=== PATIENT | male | born 1985 | race Caucasian/White ===

== ENCOUNTER 2022-10-11 11:44 | Emergency (ER) | payer MEDICARE, MEDICAID, SELFPAY ==
--- NOTE | ~2022-10-11 | XR_ITS ---
EXAMINATION: XR KNEE, RIGHT CLINICAL INFORMATION: Pain COMPARISON: February 12, 2011 TECHNIQUE: Four views of the right knee. FINDINGS: There is no evidence of acute fracture or dislocation of the right knee. Right knee joint spaces are maintained. There appears be a small right knee effusion as well as some edematous change within the soft tissues. This is most prominent anteromedially. XR/XR knee RT 3V IMPRESSION: Soft tissue edema and small effusion. No bony abnormality of the right knee identified.
[2022-10-11 12:00] VITALS: BP 123/78; PULSE 68; RESP 18; TEMP 36.4; O2SAT 100; BMI 35.3
[2022-10-11] MEDS: Ketorolac Tromethamine 30 MG/ML VIAL IM (12:59)
--- NOTE | 2022-10-11 13:04 | PC.NURSE ---
pt medicated fo r10/10 pain per order
--- NOTE | 2022-10-11 15:27 | ED.LOWEXIN ---
HPI - Extremity Injury (Lower) General Chief Complaint: Extremity Injury, Lower Stated Complaint: R Knee Injury 10/10/22 Time Seen by Provider: 10/11/22 12:16 Source: patient and RN notes reviewed Mode of arrival: ambulatory Limitations: no limitations History of Present Illness HPI Narrative: This is a 36-year-old male presenting to the emergency department with complaints of right knee pain since yesterday. Patient reports that he was getting something out of his trunk, when suddenly he felt as though his right knee popped out. He states he has had pain, swelling, and can only bear some weight on his right leg. Patient reports history of ?knee dislocation? while he was incarcerated. He denies following up with any medical staff regarding this. He denies any numbness, tingling, or weakness. Denies taking any medications at the trees current symptoms. No other complaints or concerns at this time. MD complaint: knee injury Onset (ago): day(s) Place: home Related Data Allergies Allergy/AdvReac Type Severity Reaction Status Date / Time Penicillins [PENICILLINS] Allergy Unknown SWELLING Unverified 01/08/20 17:00 sulfamethoxazole Allergy Unknown ANGIO EDEMA Unverified 01/08/20 17:00 [From BACTRIM] trimethoprim [From BACTRIM] Allergy Unknown ANGIO EDEMA Unverified 01/08/20 17:00 acetaminophen [From Tylenol] Allergy Facial Verified 10/11/22 11:59 Swelling Review of Systems Review of Systems: Constitutional: No Weight loss, No Fever, No Chills ENT/Mouth: No Ear Pain, No Nasal Congestion, No Sinus Pain, No Hoarseness, No sore throat, No Rhinorrhea, No Swallowing Difficulty Cardiovascular: No Chest Pain, No SOB Respiratory: No Cough, No Sputum, No Wheezing Gastrointestinal: No Nausea, No Vomiting, No Diarrhea, No Constipation, No Abdominal pain Genitourinary: No Dysuria, No Urinary Frequency, No Hematuria, No Urinary Incontinence/retention, No Urgency, No Flank Pain Musculoskeletal: + joint pain, No Myalgias, No Joint Swelling Skin: No Skin Lesions, No rash Neuro: No Weakness, No Numbness, No Paresthesias PMF Past Medical History Surgical History (Updated 10/11/22 @ 13:03 by Elisabeth Reddy RN) History of facial surgery S/P foot surgery, left Social History Social History Alcohol intake: never Smoked in Last 30 Days: No Substance Use Type: Marijuana Substance Use Frequency: Daily Advance Directives: No Advance Directives Information Provided: Yes Physical Exam Vital Signs: Vital Signs: Last Vital Signs Temp 97.6 F 10/11/22 12:00 Pulse 68 10/11/22 12:00 Resp 18 10/11/22 12:00 BP 123/78 10/11/22 12:00 Pulse Ox 100 10/11/22 12:00 O2 Del Method Room Air 10/11/22 12:00 BMI result Body Mass Index 35.3 Const: Other: General: Awake, alert, and oriented X3. No acute distress. HEENT: Normal inspection CVS: Normal heart rate and rhythm. Pulses normal. Respiratory: No respiratory distress Skin: Warm, dry, no rashes noted to exposed skin. Normal skin color. Normal skin turgor. Extremities: Right knee with moderate edema noted to the lateral aspect. Tenderness to palpitation diffusely throughout the entire knee. Exquisite pain with varus and valgus strain. Able to flex knee to about 30 degrees. Distal sensation circulation intact. DP pulses 2+. No open wounds or lacerations noted. No erythema noted to the knee. Neuro: Oriented X 3. No motor deficit. No sensory deficit. Course Reevaluation(s) Reevaluation #1: Knee x-rays reviewed revealing soft tissue edema and small effusion. No bony abnormality in right knee. Went to discuss these results but patient eloped prior to discussion. Medications Administered Discontinued Medications Generic Name Dose Route Start Last Admin Trade Name Freq PRN Reason Stop Dose Admin Ketorolac Tromethamine 30 mg 10/11/22 12:56 10/11/22 12:59 Ketorolac Tromethamine 30 Mg/Ml Vial IM 10/11/22 12:57 30 mg ONCE ONE Administration Medical Decision Making Medical Decision Making MDM Narrative: [id number] presenting to the emergency department for evaluation of right knee pain since yesterday. Vital signs stable. Pt's knee nonerythematous, but is edematous and TTP diffusely. DP pulses 2+, distal sensation and circulation intact. Able to flex and extend knee. Xray of right knee ordered. Differential Diagnosis Differential Diagnoses: The differential diagnosis associated with the presentation includes Right knee dislocation, patellar fracture, knee sprain, strain, septic joint - unlikely Admission/Observation Consideration of admission/observation: Escalation of care including admission/observation considered Independent Interpretation I performed an independent interpretation of an: Plain X-Ray Interpretation: I have personally reviewed the x-ray and agree with radiology report. Radiology Impression Discussion of test interpretation with radiology: I have reviewed the radiologist's reading. Radiologist Impression: EXAMINATION: XR KNEE, RIGHT? CLINICAL INFORMATION: Pain? COMPARISON: February 12, 2011? TECHNIQUE: Four views of the right knee. FINDINGS: There is no evidence of acute fracture or dislocation of the right knee. Right knee joint spaces are maintained. There appears be a small right knee effusion as well as some edematous change within the soft tissues. This is most prominent anteromedially.? XR/XR knee RT 3V IMPRESSION: Soft tissue edema and small effusion. No bony abnormality of the right knee identified. ? Dictated By: Pola Gotti MD Discharge Plan Discharge Clinical Impression: Knee pain, right Patient Disposition: Elopement Discharge Date/Time: 10/11/22 15:23
== END 2022-10-11 15:23 | disposition left against medical advice (07) ==
PROVIDERS: Emergency Provider Emergency Medicine
DX: M25.561 Pain in right knee (principal); R60.0 Localized edema; M25.461 Effusion, right knee
CPT/HCPCS: 73562; 90471; 96372; 99283; 99284; J1885

== ENCOUNTER 2023-05-18 11:55 | Outpatient (REF) | payer MEDICARE, MEDICAID, SELFPAY ==
--- NOTE | ~2023-05-18 | XR_ITS ---
EXAMINATION: XR KNEE, RIGHT CLINICAL INFORMATION: Chronic right knee pain. Twisted a year ago. COMPARISON: None available. TECHNIQUE: 3 views of the right knee. FINDINGS: The tricompartment joint space is preserved. No bony erosive changes. No loose bodies, acute fracture or dislocation. The soft tissues are normal. XR/XR knee RT 3V IMPRESSION: Unremarkable right knee exam.
== END 2023-05-18 11:56 | disposition home or self-care (01) ==
LOC: HO.HHCX 11:55
PROVIDERS: Visit Provider Student in an Organized Health Care Education/Training Program
DX: M25.561 Pain in right knee (principal); G89.29 Other chronic pain
CPT/HCPCS: 73562

== ENCOUNTER 2023-06-08 16:10 | Outpatient (REF) | payer MEDICARE, MEDICAID, SELFPAY | END 2023-06-08 16:11 | disposition home or self-care (01) | LOC: HO.HOSX 16:10 | PROVIDERS: Visit Provider Physician Assistant | DX: Z13.89 Encounter for screening for other disorder (principal) ==

== ENCOUNTER 2023-07-04 15:32 | Outpatient (REF) | payer MEDICARE, MEDICAID, SELFPAY ==
[2023-07-04 18:20] LABS: Alanine Aminotransferase 15 U/L (0-40); Albumin Level 4.9 g/dL (3.5-5.0); Alkaline Phosphatase 57 U/L (39-117); Anion Gap 13 (12-20); Aspartate Amino Transferase 15 U/L (5-37); Bilirubin Total 0.5 mg/dL (0.0-1.0); Blood Urea Nitrogen 9 mg/dL (9-16); Calcium 10.3 mg/dL (8.4-10.2); Carbon Dioxide 31 mmol/L (22-29); Chloride 102 mmol/L (96-108); Cholesterol 185 mg/dL (<200); Estimated Glomerular Filt Rate > 60; Glucose Random 89 mg/dL (60-115); HDL Cholesterol 58 mg/dL (>40); LDL Cholesterol Calculated 114 mg/dL (<100); Potassium 4.4 mmol/L (3.3-5.1); Sodium 142 mmol/L (135-145); Triglycerides 66 mg/dL (<150)
[2023-07-05 04:38] LABS: ~HepC Num1 0.07 S/CO (0.00-0.79); ~Hepatitis C Antibody Nonreactive (Nonreactive)
[2023-07-05 11:50] LABS: CT PCR NOT DETECTED (Not Detect.); NG PCR NOT DETECTED (Not Detect.)
[2023-07-08 17:13] LABS: HIV RNA PCR Qn Copies Not Detected Copies/mL; HIV RNA PCR Qn Log Copies Not Detected Log cps/mL
== END 2023-07-04 15:33 | disposition home or self-care (01) ==
LOC: HO.HHCL 15:32
PROVIDERS: Visit Provider Nurse Practitioner Family
DX: Z00.00 Encounter for general adult medical examination without abnormal findings (principal); Z11.4 Encounter for screening for human immunodeficiency virus [HIV]; E66.9 Obesity, unspecified; Z68.32 Body mass index [BMI] 32.0-32.9, adult; Z71.3 Dietary counseling and surveillance; Z20.2 Contact with and (suspected) exposure to infections with a predominantly sexual mode of transmission
CPT/HCPCS: 0353U; 36415; 80053; 80061; 86592; 86803; 87536; 87900

== ENCOUNTER 2023-07-06 12:35 | Outpatient (REF) | payer MEDICARE, MEDICAID, SELFPAY ==
--- NOTE | ~2023-07-06 | XR_ITS ---
EXAMINATION: XR KNEE, RIGHT CLINICAL INDICATION: Pain in right knee. COMPARISON: 05/18/2023, 05/13/2022 radiographs right knee. TECHNIQUE: Centre view only of the right knee obtained. FINDINGS: Mild relative lateral positioning of the patella could be positional. XR/XR knee RT 1V IMPRESSION: Mild relative lateral positioning of the patella could be positional.
== END 2023-07-06 12:36 | disposition home or self-care (01) ==
LOC: HO.HOSX 12:35
PROVIDERS: Visit Provider Physician Assistant
DX: M23.91 Unspecified internal derangement of right knee (principal); M17.11 Unilateral primary osteoarthritis, right knee; Z91.81 History of falling
CPT/HCPCS: 73560; 99202

== ENCOUNTER 2023-07-06 12:35 | Outpatient (AMB) | payer MEDICARE, MEDICAID, SELFPAY ==
--- NOTE | 2023-07-06 12:58 | A.OFFVIS_ITS ---
Intake Vital Signs 07/06/23 12:59 Height 6 ft Weight 239 lb BMI 32.4 Intake Visit Reasons: New Pt - Right knee pain Intake Note: Srikanth lugo 37 year old male presents today as a new patient for an evaluation of right knee pain. Patient reports about 2 years ago while he was incarcerated, he was stripping wax off the floor when he slipped and fell. His knee popped out and was popped back in. No previous tx. Currently he has intermittent swelling and his knee frequently gives out. He was instructed to do at home exercises and use knee brace. Finds little relief with topical cream, naproxen, ibuprofen. Allergies Penicillins [PENICILLINS] Allergy (Unknown, Unverified 07/06/23 13:06) SWELLING sulfamethoxazole [From BACTRIM] Allergy (Unknown, Unverified 07/06/23 13:06) ANGIO EDEMA trimethoprim [From BACTRIM] Allergy (Unknown, Unverified 07/06/23 13:06) ANGIO EDEMA acetaminophen [From Tylenol] Allergy (Verified 07/06/23 13:06) Facial Swelling HPI New Pt - Right knee pain HPI Details 37-year-old male who presents to the off ice today for evaluation of right knee pain after stripping wax off the floor while being incarcerated when he slipped and fell on his knee which popped out and was popped back in, about 2 years ago. He currently states he has pain and intermittent swelling in his knee. He also c/o his knee frequently giving out with ambulation. He was instructed to work on home exercises and use a knee brace. He finds mild relief with topical cream, naproxen, and ibuprofen. He has not had any previous treatment. [facility] Surgical History History of facial surgery S/P foot surgery, left Social History (Updated 07/06/23 @ 13:05 by HAN Locke) Alcohol intake: never Patient Tobacco Use Status: Current everyday Tobacco user Substance Use Type: Marijuana Current occupational status: unemployed Review of Systems Const All systems reviewed & are unremarkable except as noted in HPI and below Physical Exam Vital Signs: BMI result Body Mass Index 32.4 Const General: cooperative, healthy appearing, comfortable, no acute distress, well developed and alert Orientation/consciousness: patient oriented x3 HEENT Head: Yes normal to inspection, Yes normocephalic and Yes atraumatic Eyes General: appearance normal, both eyes and all related structures Resp Effort & Inspection: normal respiratory effort and able to speak in complete sentences Cardio Rate: regular rate Peripheral pulses: Peripheral pulses 2+ throughout GI Palpation (GI): Soft to palpation Skin Lesions: no lesions Rashes: no rashes Neuro General: patient oriented x3 Extrem Other: Right knee: Skin intact, no erythema or joint effusion. Lateral retropatellar tenderness as well as tenderness along the medial joint line. Full ROM with crepitus. Negative Esperanza?s. No ligamentous laxity. NVI. Results Reviewed Results Reviewed: Xrays were obtained in the office today and personally reviewed by me of the right knee show lateralization of the patella. Assessment & Plan Assessment & Plan (1) Internal derangement of right knee: Code(s): M23.91 - Unspecified internal derangement of right knee Plan He will continue with the knee brace. We discussed some home exercises to work on strengthening the glute and quad muscles. An MRI of the right knee was ordered to further evaluate the source of his pain. Once the MRI is complete, he will see me back to discuss the results. Orders: Orders MR knee RT wo con 07/06/23 M17.11 - Unilateral primary osteoarthritis, right knee XR knee RT 1V 07/06/23 M25.561 - Pain in right knee Patient Instructions: Scribed for Ronda Dennis PA-C, by Alejandro Peerz senior medical technologist, on 07/06/2023 at 1:45 PM EST. IRonda PA-C, have personally reviewed and agree with the information entered by the scribe. Coding Level of Care Code New Pt Level 3 (82411) Diagnoses Internal derangement of right knee M23.91
[2023-07-06 12:59] VITALS: BMI 32.4
== END 2023-07-06 14:07 | disposition home or self-care (01) ==
PROVIDERS: Visit Provider Physician Assistant
DX: M23.91 Unspecified internal derangement of right knee (principal)
CPT/HCPCS: 99203

== ENCOUNTER 2024-03-06 20:56 | Emergency (ER) | payer MEDICARE, MEDICAID, SELFPAY ==
[2024-03-06 20:57] VITALS: BP 119/78; PULSE 85; RESP 20; TEMP 37; O2SAT 98; BMI 28.5
== END 2024-03-07 00:54 | disposition left against medical advice (07) ==
PROVIDERS: Emergency Provider Emergency Medicine Emergency Medical Services
DX: S61.213A Laceration without foreign body of left middle finger without damage to nail, initial encounter (principal); W26.8XXA Contact with other sharp object(s), not elsewhere classified, initial encounter; Y93.9 Activity, unspecified; Y92.9 Unspecified place or not applicable; Y99.9 Unspecified external cause status; Z53.21 Procedure and treatment not carried out due to patient leaving prior to being seen by health care provider
CPT/HCPCS: 99281

== ENCOUNTER 2024-05-18 18:59 | Outpatient (REF) | payer MEDICARE, MEDICAID, SELFPAY ==
--- NOTE | ~2024-05-18 | MR_ITS ---
EXAMINATION: MRI RIGHT KNEE WITHOUT CONTRAST HISTORY: M17.11 - Unilateral primary osteoarthritis, right knee COMPARISON: Correlation is made with plain films of the right knee dated 05/18/2023. TECHNIQUE: Coronal T1 and fat-suppressed proton density, sagittal proton density and fat-suppressed proton density, and axial fat suppressed T2 weighted MR images of the right knee were obtained. FINDINGS: There is faint marrow edema in the posterior aspect of the lateral femoral condyle which may indicate a bone contusion. Bone marrow signal intensity is otherwise normal. There is a moderate suprapatellar joint effusion. There is a small Valles's cyst. There is mild increased signal intensity within the medial gastrocnemius muscle, consistent with a strain or partial tear. In addition, there is increased T2 signal intensity within the medial gastrocnemius tendon with associated cystic change consistent with tendinosis and probable partial tear. The anterior and posterior cruciate ligaments are intact. There is thickening of the origin of the fibular collateral ligament which may indicate an old injury. This demonstrates normal signal intensity. The medial collateral ligament is intact. The medial and lateral menisci are intact. The patellar and quadriceps tendons and patellar retinacula are unremarkable in appearance. There is mild cartilage thinning involving the patellofemoral compartment.. MR/MR knee RT wo con IMPRESSION: 1. Probable small bone contusion involving the lateral femoral condyle. Moderate joint effusion and small Valles's cyst. 2. Findings consistent with a strain or partial tear of the medial gastrocnemius muscle. 3. Tendinosis and probable partial tear of the medial gastrocnemius tendon. 4. Mild cartilage thinning involving the patellofemoral compartment. Thickening of the origin the fibular collateral ligament which may represent an old injury. Electronically signed by: Adriano Valdez MD 05/19/2024 09:43 AM EST
--- OUTSIDE RECORDS SUMMARY | 2024-05-18 19:03 | XMS_ITS | Clinical Summary ---
Author Organization [facility] Address [address] [place] [address] Care Team Providers Care Road Train Driver Name Role Phone Unavailable Primary Care Provider Unavailabl e Source Comments PLEASE NOTE, if this patient is a minor, it may be UNLAWFUL to discuss sensitive information that is contained in these records (such as FAMILY PLANNING, MENTAL HEALTH or SUBSTANCE ABUSE) with the minor patient's parent or other person without the patient's specific authorization.[facility] Social History Tobacco Use Types Packs/Day Years Used Date Smoking Tobacco: Never Assessed Social Connections Answer Date Recorded Social Connections and Isolation 0 09/13/2021 Financial Resource Strain Answer Date R ecorded Financial Resource Strain 0 2021 Stress Answer Date Recorded Stress 0 09/13/2021 Physical Activity Answer Date Recorded Physical Activity 0 09/13/2021 Food Insecurity Answer Date Recorded Food 0 09/13/2021 Transportation Needs Answer Date Record ed Transportation 0 09/13/2021 Housing Stability Answer Date Recorded Housing 0 09/13/2021 Safety and Environment Answer Date Tim rded Safety 0 09/13/2021 Utilities Answer Date Recorded Utilities 0 09/13/2021 Employment Answer Date Recorded Employment 0 09/13/2021 Sex and Gender Information Value Date Recorded Sex Assigned at Not on file Legal Sex Male 2:02 PM PST Gender Identity Not on file Sexual Orientation Not on file Plan of Treatment Not on file Insurance GENERIC [place]
--- OUTSIDE RECORDS SUMMARY | 2024-05-18 19:03 | XMS_ITS | Clinical Summary ---
Author Organization [facility] ity Address [address] [place] [address] [address] Team Prov[address] Care Ct Tech Name Role Phone Asiya King MD Primary Care Provider [phone] Allergies Active Allergy Reactions Criticality Noted Date Comments Acetaminophen 11/04/2016 Up set stomach . Hx of IBS Penicillins Numbness 04/07/2011 Sulfamethoxazole-Trimethoprim Swelling High 2011 Medications Medication Sig Dispensed Refills Start Date End Date Status oxyCODONE-acetaminophe n (PERCOCET) 5-325 mg per tablet 08/21/2017 Active ciprofloxacin (CIPRO) 500 mg tablet Take 500 mg by mouth 2 times daily. Active clindamycin (CLEOCIN) 300 mg capsule Take 300 mg by mouth 4 times daily. Active MUPIROCIN CALCIUM NASL 1 g mg by Nasal route 2 times daily. Active naproxen (NAPROSYN) 500 mg tablet Take 500 mg by mouth 2 times daily (with meals). Active albuterol HFA (PROAIR HFA ; PROVENTIL HFA ; VENTOLIN HFA) 90 mcg/actuation inhaler Inhale 2 Puffs into the lungs every 4 hours as needed for Cough or Wheezing. 05/01/2016 Active Active Problems Problem Noted Date Diagnosed Date Asthma 04/20/2024 Hypothyroid 04/20/2024 ADHD (attention deficit hype ractivity disorder), combined type 10/31/2016 Overview (04/20/2024): Started on Metadate Cd in Mar 2016, Changed to Concerta. Doing better on Adderall Xr 10 mg 10/07. MassP at ran and sent to scan Erectile dysfunction 10/21/2015 IBS (irritable bowel syndrome) 09/23/2015 Overview (04/20/2024): Diarrhea predominant IBS. Intolerable sedation in response to dicyclomine, documented 09/23/2015. Has tried amitriptyline in the past without improvement. Migraine 10/06/2013 Immunizations Name Administration Dates Next Due H1N1 Inj Preservative Free 05/05/2009 Hepatitis A Adult (Havrix; Vaqta) 19yo and older 12/10/2008 Hepatitis A-Hepatitis B Adult (Twinrix) 18yo and older 08/12/2009,05/23/2007 Influenza trivalent, with pr eservative (Fluzone; Afluria) 6mo and older 04/07/2011 Tdap Tetanus diptheria acell ular pertussis (Boostrix; Adacel) 7yo and older 06/04/2013 Surgical History Surgery Date Site/Laterality Comments OTHER SURGICAL HISTORY PROCEDURE: HISTORICAL UNSPECIFIED SURGERY; COMMENT: rgiht jaw plate due to accident Medical History Medical History Date Comments Asthma DX:Asthma Hypothyroid DX:Hypothyroid ADHD (attention deficit hype ractivity disorder) DX:ADHD (attention deficit hyperactivity disorder); COMMENT: dx when young. IBS (irritable bowel syndrome) 09/23/2015 D X:IBS (irritable bowel syndrome); COMMENT: Diarrhea predominant IBS. Intolerable sedation in response to dicyclomine, documented 09/23/2015. Has tried amitriptyline in the past without improvement. Family History Medical History Relation Name Comments Blindness Other Strabismus Other Cataracts Neg Hx Glaucoma Neg Hx Macular degeneration Neg Hx Relation Name Status Comments Father Alive htn, heart prob lems Mother Alive lups, htn, dm Other Social History Tobacco Use Types Packs/Day Years Used Date Smoking Tobacco: Every Day Cigarettes Smokeless Tobacco: Never Alcohol Use Standard Drinks/Week Comments Yes 0 (1 standard drink = 0.6 oz pur e alcohol) Sex and Gender Information Value Date Recorded Sex Assigned at Not on file Gender Identity Not on file Sexual Orientation Not on file Obstetrics History Plan of Treatment Health Maintenance Due Date Last Done Comments Pneumococcal Vaccine: Pediatrics (0 to 5 Years) and At-Risk Patients (6 to 64 Years) (1 of 2 - PCV) 11/24/1993 Hepatitis B Vaccines (3 of 3 - Hep B Twinrix 3-dose series) 01/12/2010 08/12/2009, 05/23/2007 DTaP,Tdap,and Td Vaccines (2 - Td or Tdap) 06/04/2023 06/04/2013 COVID-19 Vaccine (1 2023-2 5 season) 2023 Influenza Vaccine (#1) 2023 1, 05/05/2009 Cholesterol Screening (Lipid Panel) 04/20/2024 06/04/2013 Depression Screening 04/20/2024 Social Influencers of Health Screening 04/20/2024 Hepatitis A Vaccines Aged Out 08/12/2009, 12/10/2008, 05/23/2007 No longer eligible based on patient's age to complete this topic HIV Screening Completed 05/29/2013 Hepatitis C Screening Completed 06/04/2013 HIB Vaccines Aged Out No longer eligi ble based on patient's age to complete this topic HPV Vaccines Aged Out No longer eligi ble based on patient's age to complete this topic IPV Vaccines Aged Out No longer eligi ble based on patient's age to complete this topic MMR Vaccines Aged Out No longer eligi ble based on patient's age to complete this topic Meningococcal ACWY Vaccine Aged Out N o longer eligible based on patient's age to complete this topic RSV Immunization Patients Under 20 months Aged Out No longer eligible b ased on patient's age to complete this topic Varicella Vaccines Aged Out No longer eligible based on patient's age to complete this topic Procedures Procedure Name Priority Date/Time Associated Diagnosis Comments HEPATITIS C SCREENING Routine 06/04/2013 LIPID PANEL Routine 06/04/2013 HIV SCREENING Routine 05/29/2013 from Last 3 Months or Most Recently Relevant to Health Maintenance Results * Hepatitis C Screening (06/04/2013) Pathologist [facility] Hepatitis C Screening ABSTRACTED Historical Provider MD JODIE Oquendo * (ABNORMAL) Lipid panel (06/04/2013) LDL/HDL Ratio 4 0 - 4 Triglycerides 151(A) 0 - 150 mg/dL Cholesterol 196 0 - 200 mg/dL HDL 50 40 mg/dL LDL Cholesterol 116(A) 0 - 100 mg/dL Blood Venous blood specimen / Unknown Historical Provider LAB BLOOD ORDERAB LES * Hm HIV Screening (05/29/2013) HIV Screening ABSTRACTED Historical Provider [facility] from Last 3 Months or Most Recently Relevant to Health Maintenance Care Teams Ct Tech Relationship Specialty Start Date End Date Asiya King MD PCP - General 10/12/22
--- OUTSIDE RECORDS SUMMARY | 2024-05-18 19:03 | XMS_ITS | Clinical Summary ---
Author Organization [employer] Address [address] [facility] [address] [place] [address] Care Team Providers Care Buncher Hand Name Role Phone Yamilex Thomas YEISON Primary Care Provider [phone] Allergies Active Allergy Reactions Criticality Noted Date Comments Acetaminophen 11/04/2016 Up set stomach . Hx of IBS Penicillin G 05/17/2023 Penicillins 04/07/2011 Other Reaction(s): Numbness, tingling or swelling of the lips, tongue or mouth Sulfamethoxazole-Trimethoprim Swelling High 2011 Medications albuterol (ProAir HFA) 108 (90 Base) MCG/ACT inhaler Inhale 2 puffs every 4 (four) hours if needed for wheezing. 18 g 2 4 Active Diclofenac Sodium 1 % gelIndications: Chronic pain of right knee Apply 1 Application topically if needed in the morning and at bedtime (knee pain). 50 g 4 Active naproxen (Naprosyn) 500 MG tablet Take 500 mg by mouth with breakfast and with evening meal. Active fluticasone (Flonase) 50 MCG/ACT nasal spray SPRAY 1 SPRAY INTO EACH NOSTRIL IN THE MORNING 48 mL 4 Active Active Problems Problem Noted Date Diagnosed Date Tobacco use 05/18/2023 Assessment & Plan (05/18/2023 8:52 AM EST): -advised tobacco cessation , pt interested in program --referred today Knee pain 05/18/2023 Assessment & Plan (05/18/2023 8:55 AM EST): Pt w right chronic pain after trauma that comes and goes Pt does have significant cracking on exam and mild edema Most likely there is a ligament ,meniscal dx -will start workup w XR of knee -referred to orthopedic today -pt will likely need MRI but will hold on specialist evaluation -nurse staff helped today w knee brace prescription -diclofenac prn and Naproxen prn for more intense pain, pt has listed allergy w tylenol -alarm signs and symptoms discussed Encounters Date Type Department Care Team Description 02/28/2024 Telephone [facility] [address] [place] [address] Leslye Jose, OD from Last 3 Months Immunizations Name Administration Dates Next Due Hep A / Hep B 08/12/2009,05/23/2007 Hep A, Adult 12/10/2008 Hep B, adult 07/04/2023 Influenza injectable quadriv alent IIV4 with preservative 05/31/2021 Influenza, IIV3, injectable 04/07/2011 Moderna Covid-19 Vaccine 12+ 04/07/2011 Novel [id number], preservative-free 05/05 Pfizer Covid-19 Vaccine 12+ 05/31/2021 Pneumococcal Conjugate PCV 20 07/04/2023 Tdap 10/29/2019,06/04/2013 Family History Medical History Relation Name Comments Heart disease Father Breast cancer Father's Sister Diabetes Mother Hypertension Mother Lupus Mother Relation Name Status Comments Father Father's Sister Mother Social History Tobacco Use Types Packs/Day Years Used Date Smoking Tobacco: Every Day Cigarettes Passive Smoke Exposure: Past Smokeless Tobacco: Never Comments:0.5 pack per day x 23 years (since age 15) Alcohol Use Standard Drinks/Week Comments Not Currently 0 (1 standard drink = 0.6 oz pur e alcohol) none x 1 year Depression Answer Date Recorded Patient Health Questionnaire-9 Score 7 07/04/2023 Patient Health Questionnaire-9 Score 7 07/04/2023 Last PHQ-9: Questionnaire Data Not on file 0 07/04/2023 Housing Stability Answer Date Recorded What is your housing situation today? I have juan sharp 07/04/[address] you li ve. Do you have problems with any of the following? None of the above 07/04/2023 Food Insecurity Answer Date Recorded Within the past 12 months, y ou worried that your food would run out before you got money to buy more: Never True 07/04/2023 Within the past 12 months,th e food you bought just didn't last and you didn't have enough money to get more: Never True Transportation Answer Date Recorded In the past 12 months, has l ack of transportation kept you from medical appts, meetings, work or from getting things needed for daily living? No 07/04/2023 Utilities Answer Date Recorded In the past 12 months, has t he [employer], gas, oil or water company threatened to shut off services in your home? No 07/04/2023 Depression Answer Date Recorded Patient Health Questionnaire-2 Score 1 07/04/2023 Sex and Gender Information Value Date Recorded Sex Assigned at Male 02/20/2022 10:16 AM EDT Legal Sex Male 10:16 AM EDT Gender Identity Male 02/20/2022 10:16 AM EDT Sexual Orientation Straight 02/20/2022 10 :16 AM EDT Last Filed Vital Signs Vital Sign Reading Time Taken Comments Blood Pressure 134/88 07/04/2023 2:10 PM EDT Pulse 72 07/04/2023 2:10 PM EDT Temperature 36.6 ??C (97.8 ??F) 07/04/2023 2:10 PM ED T Respiratory Rate 18 07/04/2023 2:10 PM EDT Oxygen Saturation 97% 07/04/2023 2:10 PM EDT Inhaled Oxygen Concentration - - Weight 108 kg (239 lb) 07/04/2023 2:10 PM EDT Height 182.9 cm (6') 07/04/2023 2:10 PM EDT Body Mass Index 32.41 07/04/2023 2:10 PM EDT Plan of Treatment Upcoming Encounters Date Type Department Care Team (Late st Contact Info) Description 06/26/2024 2:00 PM EST Office Visit [facility] [address] [place], [place] [id number] Leslye Jose, OD [address] [place] [address] Health Maintenance Due Date Last Done Comments HIV Screening 1987 Alcohol/Substance Use Screening 1999 Family Planning (PISQ) 11/24/2002 COVID-19 Vaccine ( season) 2023 05/31/2021, 04/27/2021, 07/21/2020, Additional history exists Influenza Vaccine (#1) 2023 2, 04/07/2011, 05/05/2009 Depression Screening 07/03/2024 07/04/2023, 07/04/19 24 SDOH Screening 07/03/2024 07/04/2023 Tobacco Screening 07/03/2024 07/04/2023 Lipid Panel 07/03/2028 07/04/2023 DTaP/Tdap/Td Vaccines (3 - Td or Tdap) 10/28/2029 10/29/2019, 06/04/2013 Zoster Vaccines (1 of 2) 11/24/2037 RSV Patients and Patients Aged 60 years or older (1 - 1-dose 75+ series) 11/24/2062 Hepatitis A Vaccines Aged Out 08/12/2009, 12/10/2008, 05/23/2007 No longer eligible based on patient's age to complete this topic Hepatitis B Vaccines Completed 07/04/2023, 08/12/2009, 05/23/2007 Hepatitis C Screening Completed 07/04/2023 Pneumococcal Vaccine: Pediatrics (0 to 5 Years) and At-Risk Patients (6 to 64 Years) Completed 07/04/2023 HIB Vaccines Aged Out No longer eligi ble based on patient's age to complete this topic HPV Vaccines Aged Out No longer eligi ble based on patient's age to complete this topic IPV Vaccines Aged Out No longer eligi ble based on patient's age to complete this topic Meningococcal Vaccine Aged Out No manav criselda eligible based on patient's age to complete this topic RSV under 20 months Aged Out No longe r eligible based on patient's age to complete this topic Rotavirus Vaccines Aged Out No longer eligible based on patient's age to complete this topic Procedures Procedure Name Priority Date/Time Associated Diagnosis Comments HEPATITIS C AB W/REFL TO HCV RNA, QN, PCR Routine 07/04/2023 3:42 PM EDT Routine general medical examination at a health care facility LIPID PANEL, STANDARD Routine 07/04/2023 3:42 PM EDT Dietary counseling BMI 32.0-32.9,adult Obesity (BMI 30.0-34.9) from Last 3 Months or Most Recently Relevant to Health Maintenance Results * Hepatitis C Antibody with Reflex to HCV, RNA, Quantitative, Real-Time PCR (07/04/2023 3:42 PM EDT) Hepatitis C Antibody Nonreactive Nonreactive [facility] Comment:Antibodies to HCV no t detected; does not exclude early acuteHCV infection. Blood Venous blood specimen / Unknown 07/04/2023 3:42 PM EDT 07/04/2023 5:40 PM EDT Nikki Woodward [facility] BLOOD ORDERABLES Final Resu lt [facility] [address] [place] [phone] * (ABNORMAL) Lipid Panel, Standard (07/04/2023 3:42 PM EDT) Triglycerides 66 <150 mg/dL [facility] Comment:Desirable Triglyceri de: less than 150 mg/dLBorderline High Triglyceride 150-199 mg/dLHigh Triglyceride: 200-499 mg/dLVery High Triglyceride: greater than or equal to 5OO mg/dL Cholesterol 185 <200 mg/dL [facility] Comment:Desirable Cholestero l: less than 200 mg/dLBorderline High Cholesterol: 200-239 mg/dLHigh Cholesterol: greater than 239 mg/dL LDL Cholesterol Calculated 114(H) <100 mg/dL [facility] Comment:Desirable LDL: less than 100 mg/dLNear Optimal/Above Optimal LDL: 110- 129 mg/dLBorderline High LDL: 130-159 mg/dLHigh LDL: 160-189 mg/dLVery High LDL: greater than or equal to 190 mg/dL HDL Cholesterol 58 >40 mg/dL [facility] Comment:Desirable HDL: great er than 40 mg/dL Note: This HDL assay may give artificially low results in patients with liver disease. Blood Venous blood specimen / Unknown 07/04/2023 3:42 PM EDT 07/04/2023 5:40 PM EDT Nikki Woodward [facility] BLOOD ORDERABLES Final Resu lt [facility] [address] [place] [phone] from Last 3 Months or Most Recently Relevant to Health Maintenance Insurance [facility] STANDARD MEDICARE Care Teams Buncher Hand Relationship Specialty Start Date End Date Yamilex Thomas FNP [address] [place] [address] PCP - General Family Medicine 02/21/24
== END 2024-05-18 19:00 | disposition home or self-care (01) ==
LOC: HO.MRI 18:59
PROVIDERS: PCP Internal Medicine; Visit Provider Physician Assistant
DX: M17.11 Unilateral primary osteoarthritis, right knee (principal)
CPT/HCPCS: 73721

== ENCOUNTER → 2024-05-18 19:09 | Outpatient (BNV) | payer MEDICARE, MEDICAID, SELFPAY | PROVIDERS: PCP Internal Medicine; Visit Provider Radiology Diagnostic Radiology | DX: M25.461 Effusion, right knee (principal); M71.21 Synovial cyst of popliteal space [Baker], right knee; M67.90 Unspecified disorder of synovium and tendon, unspecified site | CPT/HCPCS: 73721 ==

== ENCOUNTER 2024-06-30 12:46 | Outpatient (AMB) | payer MEDICARE, MEDICAID, SELFPAY ==
--- NOTE | 2024-06-30 12:55 | A.OFFVIS_ITS ---
Intake Visit Reasons: OV- Right knee MRI review Intake Note: Srikanth is a 37 year old male who presents today for an MRI review of right knee pain. Patient reports his pain has gotten worse since his last visit. His pain fluctuates daily, states some days are better than others. Allergies Penicillins [PENICILLINS] Allergy (Unknown, Verified 06/30/24 13:01) SWELLING sulfamethoxazole [From BACTRIM] Allergy (Unknown, Verified 06/30/24 13:01) ANGIO EDEMA trimethoprim [From BACTRIM] Allergy (Unknown, Verified 06/30/24 13:01) ANGIO EDEMA acetaminophen [From Tylenol] Allergy (Verified 06/30/24 13:01) Facial Swelling HPI HPI OV- Right knee MRI review: Details: 38-year-old gentleman returns to the office today for ongoing right knee pain. He also has discomfort along the gastroc muscle. He states there is intermittent swelling if he is standing for long periods at a time. Denies instability. No locking or catching. [facility] Surgical History History of facial surgery S/P foot surgery, left Social History Alcohol intake: never Patient Tobacco Use Status: Current everyday Tobacco user Substance Use Type: Marijuana Current occupational status: unemployed Review of Systems Const All systems reviewed & are unremarkable except as noted in HPI and below Physical Exam Const General: cooperative and no acute distress Orientation/consciousness: patient oriented x3 HEENT Head: Yes normal to inspection, Yes normocephalic and Yes atraumatic Eyes General: appearance normal, both eyes and all related structures Resp Effort & Inspection: normal respiratory effort and able to speak in complete sentences Cardio Rate: regular rate Peripheral pulses: Peripheral pulses 2+ throughout GI Palpation (GI): Soft to palpation Skin Lesions: no lesions Rashes: no rashes Neuro General: patient oriented x3 Extrem Other: Right knee: Skin intact, no erythema or joint effusion. Lateral retropatellar tenderness as well as tenderness along the medial joint line. Full ROM with crepitus. Negative Esperanza?s. No ligamentous laxity. NVI. Results Reviewed Results Reviewed: MR knee RT wo con IMPRESSION: 1. Probable small bone contusion involving the lateral femoral condyle. Moderate joint effusion and small Valles's cyst. 2. Findings consistent with a strain or partial tear of the medial gastrocnemius muscle. 3. Tendinosis and probable partial tear of the medial gastrocnemius tendon. 4. Mild cartilage thinning involving the patellofemoral compartment. Thickening of the origin the fibular collateral ligament which may represent an old injury. Assessment & Plan Assessment & Plan (1) Patellofemoral arthritis of right knee: Code(s): M17.11 - Unilateral primary osteoarthritis, right knee Category: Medical (2) Strain of right calf muscle: Code(s): S86.811A - Strain of other muscle(s) and tendon(s) at lower leg level, right leg, initial encounter Category: Medical Plan We discussed options which include physical therapy to work on strengthening exercises. We had also discussed the benefits of steroid injection which she would like to hold off on at this time. He will begin increasing activities as tolerated if symptoms persist or worsen he will contact our office otherwise follow up as needed. Orders: Orders PT Evaluation and Treatment Today M17.11 - Unilateral primary osteoarthritis, right knee, S86.811A - Strain of other muscle(s) and tendon(s) at lower leg level, right leg, initial encounter Coding Level of Care Code Est Pt Level 3 (67568) Complex EM visit Add On G2211 Diagnoses Patellofemoral arthritis of right knee M17.11 Strain of right calf muscle S86.811A
--- OUTSIDE RECORDS SUMMARY | 2024-06-30 14:17 | XMS_ITS | Clinical Summary ---
Author Organization [employer] Address [address] [facility] [address] [place] [address] Care Team Providers Care Provider Relations Representative Name Role Phone Yamilex Thomas YEISON Primary Care Provider [phone] Allergies Active Allergy Reactions Criticality Noted Date [...] Encounters Date Type Department Care Team Description 06/26/2024 2:00 PM EST Office Visit [facility] OPTOMETRY [address] [place] [address] Damon, Leslye, OD Regular astigmatism of both eyes (Primary Dx); Epiretinal membrane (ERM) of right eye; Congenital hypertrophy of retinal pigment epithelium 06/26/2024 Travel 05/18/2024 Orders Only [facility] External Provider, [facility] from Last 3 Months Immunizations Name Administration Dates Next Due Hep A / Hep B 08/12/2009,05/23/2007 Hep A, Adult 12/10/2008 Hep B, adult 07/04/2023 Influenza injectable quadriv alent IIV4 with preservative 05/31/2021 Influenza, IIV3, injectable 04/07/2011 Moderna Covid-19 Vaccine 12+ 04/07/2011 Novel [id number], preservative-free 05/05 Pfizer Covid-19 Vaccine 12+ 05/31/2021 [...] the past 12 months, has t he electric, gas, oil or water company threatened to [...] 07/04/2023 2:10 PM EDT Plan of Treatment Health Maintenance Due Date Last Done Comments HIV Screening 1987 Alcohol/Substance Use Screening 1999 Family Planning (PISQ) 11/24/2002 COVID-19 Vaccine ( season) 2023 05/31/2021, 04/27/2021, 07/21/2020, Additional history exists Influenza Vaccine (#1) 2023 2, 04/07/2011, 05/05/2009 Depression Screening 07/03/2024 07/04/2023, 07/04/19 24 SDOH Screening 07/03/2024 07/04/2023 Tobacco Screening 06/26/2025 06/26/2024 Lipid Panel 07/03/2028 07/04/2023 DTaP/Tdap/Td Vaccines (3 [...] 5 Years) and At-Risk Patients (6 to 49) Years) Completed 07/04/2023 HIB Vaccines Aged Out [...] Procedure Name Priority Date/Time Associated Diagnosis Comments MR KNEE WO CONTRAST RIGHT Routine 05/18/2024 7:05 PM EST HEPATITIS C AB W/REFL TO HCV RNA, QN, PCR Routine 07/04/2023 3:42 PM EDT Routine general medical examination at a health care facility LIPID PANEL, STANDARD Routine 07/04/2023 3:42 PM EDT Dietary counseling BMI 32.0-32.9,adult Obesity (BMI 30.0-34.9) from Last 3 Months or Most Recently Relevant to Health Maintenance Results * MR Knee w/o Contrast Right (05/18/2024 7:05 PM EST) Anatomical Region Laterality Modality Magnetic Resonan ce 05/18/2024 7:05 PM EST Narrative 05/19/2024 9:46 AM EST ? [facility] ?[address] ?[place] [address] ? Magnetic Resonance Report ? Signed ? Patient: Srikanth Lopez ?MR#: [id number] ?? 59 ? : 1985 ?Acct:[id number] ? Age/Sex: 38 / M ?ADM Date: 05/18/24 ? Loc: HO.MRI ? Attending Dr: Ronda Dennis PA-C ? Ordering Physician: Ronda Dennis PA-C ?? Date of Service: 05/18/24 ?? Procedure(s): MR knee RT wo con ?? Accession Number(s): [id number] ? cc: Rosalva Guthrie MD; Ronda Dennis PA-C ? EXAMINATION: MRI RIGHT KNEE WITHOUT CONTRAST ? HISTORY: M17.11 - Unilateral primary osteoarthritis, right knee ? COMPARISON: Correlation is made with plain films of the right knee ?? dated 05/18/2023. ? TECHNIQUE: ??Coronal T1 and fat-suppressed proton density, sagittal ?? proton density and fat-suppressed proton density, and axial fat ?? suppressed T2 weighted MR images of the right knee were obtained. ? FINDINGS: ?? There is faint marrow edema in the posterior aspect of the lateral ?? femoral condyle which may indicate a bone contusion. Bone marrow signal ?? intensity is otherwise normal. There is a moderate suprapatellar joint ?? effusion. There is a small Valles's cyst. ? There is mild increased signal intensity within the medial ?? gastrocnemius muscle, consistent with a strain or partial tear. In ?? addition, there is increased T2 signal intensity within the medial ?? gastrocnemius tendon with associated cystic change consistent with ?? tendinosis and probable partial tear. ? The anterior and posterior cruciate ligaments are intact. There is ?? thickening of the origin of the fibular collateral ligament which may ?? indicate an old injury. This demonstrates normal signal intensity. The ?? medial collateral ligament is intact. The medial and lateral menisci ?? are intact. ? The patellar and quadriceps tendons and patellar retinacula are ?? unremarkable in appearance. There is mild cartilage thinning involving ?? the patellofemoral compartment.. ? MR/MR knee RT wo con ?? IMPRESSION: ? 1. Probable small bone contusion involving the lateral femoral condyle. ?? Moderate joint effusion and small Valles's cyst. ? 2. Findings consistent with a strain or partial tear of the medial ?? gastrocnemius muscle. ? 3. Tendinosis and probable partial tear of the medial gastrocnemius ?? tendon. ? 4. Mild cartilage thinning involving the patellofemoral compartment. ?? Thickening of the origin the fibular collateral ligament which may ?? represent an old injury. ? Electronically signed by: ??Adriano Valdez MD ??05/19/2024 09:43 AM EST ? Dictated By: ?Adriano Valdez MD ? Signed By: ?<Electronically signed by Adriano Valdez MD in OV> ?05/19/24 0943 ? DD/ 190 ? TD/TT: 05/18/241929 ? Windows Systems Architect: ? Procedure Note Aimee Mccormack - 05/19/[address] [address] Magnetic Resonance Report Signed Patient: Srikanth LopezMR#: [id number] 59 : 1985Acct:[id number] Age/Sex: 38 / MADM Date: 05/18/24 Loc: HO.MRI Attending Dr: Ronda Dennis PA-C Ordering Physician: Ronda Dennis PA-C Date of Service: 05/18/24 Procedure(s): MR knee RT wo con Accession Number(s): [id number] cc: Rosalva Guthrie MD; Ronda Dennis PA-C EXAMINATION: MRI RIGHT KNEE WITHOUT CONTRAST HISTORY: M17.11 - Unilateral primary osteoarthritis, right knee COMPARISON: Correlation is made with plain films of the right knee dated 05/18/2023. TECHNIQUE: Coronal T1 and fat-suppressed proton density, sagittal proton density and fat-suppressed proton density, and axial fat suppressed T2 weighted MR images of the right knee were obtained. FINDINGS: There is faint marrow edema in the posterior aspect of the lateral femoral condyle which may indicate a bone contusion. Bone marrow signal intensity is otherwise normal. There is a moderate suprapatellar joint effusion. There is a small Valles's cyst. There is mild increased signal intensity within the medial gastrocnemius muscle, consistent with a strain or partial tear. In addition, there is increased T2 signal intensity within the medial gastrocnemius tendon with associated cystic change consistent with tendinosis and probable partial tear. The anterior and posterior cruciate ligaments are intact. There is thickening of the origin of the fibular collateral ligament which may indicate an old injury. This demonstrates normal signal intensity. The medial collateral ligament is intact. The medial and lateral menisci are intact. The patellar and quadriceps tendons and patellar retinacula are unremarkable in appearance. There is mild cartilage thinning involving the patellofemoral compartment.. MR/MR knee RT wo con IMPRESSION: 1. Probable small bone contusion involving the lateral femoral condyle. Moderate joint effusion and small Valles's cyst. 2. Findings consistent with a strain or partial tear of the medial gastrocnemius muscle. 3. Tendinosis and probable partial tear of the medial gastrocnemius tendon. 4. Mild cartilage thinning involving the patellofemoral compartment. Thickening of the origin the fibular collateral ligament which may represent an old injury. Electronically signed by: Adriano Valdez MD 05/19/2024 09:43 AM EST Dictated By: Adriano Valdez MD Signed By: <Electronically signed by Adriano Valdez MD in OV> 05/19/2443 DD/ 04 TD/TT: 05/18/241929 Windows Systems Architect: [facility] External Provider IMG MRI PROCEDURES Edited Result - Final * Hepatitis C Antibody with Reflex to HCV, RNA, Quantitative, Real-Time PCR (07/04/2023 3:42 PM EDT) Hepatitis C Antibody Nonreactive Nonreactive [facility] Comment:Antibodies to HCV no t detected; does not exclude early acuteHCV infection. Blood Venous blood specimen / Unknown 07/04/2023 3:42 PM EDT 07/04/2023 5:40 PM EDT Nikki Woodward WATER SOFTENER INSTALLER LAB BLOOD ORDERABLES Final Resu lt [facility] [address] [place] [address] [phone] * (ABNORMAL) Lipid Panel, Standard (07/04/2023 3:42 PM EDT) Triglycerides 66 <150 mg/dL [facility] Comment:Desirable Triglyceri de: less than 150 mg/dLBorderline High Triglyceride 150-199 mg/dLHigh Triglyceride: 200-499 mg/dLVery High Triglyceride: greater than or equal to 5OO mg/dL Cholesterol 185 <200 mg/dL [facility] Comment:Desirable Cholestero l: less than 200 mg/dLBorderline High Cholesterol: 200-239 mg/dLHigh Cholesterol: greater than 239 mg/dL LDL Cholesterol Calculated 114(H) <100 mg/dL [facility] Comment:Desirable LDL: less than 100 mg/dLNear Optimal/Above Optimal LDL: 110- 129 mg/dLBorderline High LDL: 130-159 mg/dLHigh LDL: 160-189 mg/dLVery High LDL: greater than or equal to 190 mg/dL HDL Cholesterol 58 >40 mg/dL [facility] Comment:Desirable HDL: great er than 40 mg/dL Note: This HDL assay may give artificially low results in patients with liver disease. Blood Venous blood specimen / Unknown 07/04/2023 3:42 PM EDT 07/04/2023 5:40 PM EDT us Nikki Woodward WATER SOFTENER INSTALLER LAB BLOOD ORDERABLES Final Resu lt [facility] [address] [place] [address] [phone] from Last 3 Months or Most Recently Relevant to Health Maintenance Insurance [employer] STANDARD MEDICARE Care Teams Provider Relations Representative Relationship Specialty Start Date End Date Yamilex Thomas FNP [address] [facility] [place] [address] PCP - General Family Medicine 02/21/24
--- OUTSIDE RECORDS SUMMARY | 2024-06-30 14:17 | XMS_ITS | Clinical Summary ---
Author Organization [facility] Address [address] [place] [address] Care Team Providers Care R D Intern Name Role Phone Unavailable Primary Care Provider [...]
--- OUTSIDE RECORDS SUMMARY | 2024-06-30 14:17 | XMS_ITS | Encounter Summary ---
Author Organization [employer] Address [address] [place] [address] Care Team Providers Care Superintendent Measurement Name Role Phone Megan Thomasupe YEISON Primary Care Provider [phone] Reason for Visit * Reason Comments Blurred Vision Encounter Details Date Type Department Care Team ([facility] st Contact Info) Description 06/26/2024 2:00 PM EST Office Visit [facility] OPTOMETRY [address] [place] [address] Damon, Leslye, OD [address] [place] [address] Regular astigmatism of both eyes (Primary Dx); Epiretinal membrane (ERM) of right eye; Congenital hypertrophy of retinal pigment epithelium Social History Tobacco Use Types Packs/Day Years [...] Orientation Straight 02/20/2022 10 :16 AM EDT documented as of this encounter Plan of Treatment Not on file documented as of this encounter Visit Diagnoses Diagnosis Regular astigmatism of both eyes- Primary Epiretinal membrane (ERM) of right eye Congenital hypertrophy of retinal pigment epithelium Dystrophies primarily involving the retinal pigment epithelium documented in this encounter Additional Health Concerns Assessment Noted Time PHQ-9 Depression Total Score: 7 07/04/19 24 4:27 PM EDT documented as of this encounter Care Teams Superintendent Measurement Relationship Specialty Start Date End Date Yamilex Thomas FNP [address] [place] [address] PCP - General Family Medicine 02/21/24 documented as of this encounter
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
--- OUTSIDE RECORDS SUMMARY | 2024-06-30 14:17 | XMS_ITS | Clinical Summary ---
Author Organization [facility] ity Address [address] [place] [address] Care Team Providers Care Naval Marine Engineer Name Role Phone Asiya King MD Primary Care Provider [phone] Allergies Active Allergy Reactions Criticality Noted Date Comments Acetaminophen 11/04/2016 Up set stomach . Hx of IBS Penicillins Numbness 04/07/2011 Sulfamethoxazole-Trimethoprim Swelling High 2011 Medications oxyCODONE-aceta minophen (PERCOCET) 5-325 mg per tablet 08/21/2017 Active [...] at Not on file Legal Sex Male 12:14 AM EST Gender Identity Not on file Sexual Orientation Not on file Obstetrics History Plan of Treatment Health Maintenance Due Date Last Done Comments Pneumococcal Vaccine: Pediatrics (0 to 5 Years) and At-Risk Patients (6 to 64 Years) (1 of 2 - PCV) 11/24/2006 Hepatitis B Vaccines (3 of 3 - Hep B Twinrix 3-dose series) 01/12/2010 08/12/2009, 05/23/2007 DTaP,Tdap,and Td Vaccines (2 - Td or Tdap) 06/04/2023 06/04/2013 COVID-19 Vaccine (1 - 2023-2 5 season) 2023 Influenza Vaccine (#1) 2023 , 05/05/2009 Cholesterol Screening (Lipid Panel) 04/20/2024 06/04/2013 [...] patient's age to complete this topic Meningococcal B Vacine Aged Out No lo nger eligible based on patient's age to complete [...] Maintenance Results * Hepatitis C Screening (06/04/2013) Hepatitis C Screening ABSTRACTED us Historical Provider MD HEALTH MAINTENANCE Final Result * (ABNORMAL) Lipid panel (06/04/2013) LDL/HDL Ratio 4 0 - 4 Triglycerides 151(A) 0 - 150 mg/dL Cholesterol 196 0 - 200 mg/dL HDL 50 >=40 mg/dL LDL Cholesterol 116(A) 0 - 100 mg/dL Blood Venous blood specimen / Unknown Historical Provider LAB BLOOD ORDERABLES Chanda l Result * HIV Screening (05/29/2013) HIV Screening ABSTRACTED Historical Provider HEALTH MAINTENANCE Final Result from Last 3 Months or Most Recently Relevant to Health Maintenance Care Teams Naval Marine Engineer Relationship Specialty Start Date End Date Asiya King MD PCP - General 10/12/22
== END 2024-06-30 13:35 | disposition home or self-care (01) ==
PROVIDERS: PCP Internal Medicine; Visit Provider Physician Assistant
DX: M17.11 Unilateral primary osteoarthritis, right knee (principal); S86.811A Strain of other muscle(s) and tendon(s) at lower leg level, right leg, initial encounter
CPT/HCPCS: 99213; G2211

== ENCOUNTER → 2024-06-30 12:46 | Outpatient (BNVA) | payer MEDICARE, MEDICAID, SELFPAY | PROVIDERS: PCP Internal Medicine; Visit Provider Physician Assistant | DX: S86.811A Strain of other muscle(s) and tendon(s) at lower leg level, right leg, initial encounter (principal); M17.11 Unilateral primary osteoarthritis, right knee | CPT/HCPCS: 99212 ==

== ENCOUNTER 2024-08-09 08:40 | Emergency (ER) | payer MEDICARE, MEDICAID, SELFPAY ==
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
--- NOTE | ~2024-08-09 | XR_ITS ---
CLINICAL HISTORY: swelling pain 2 view right forearm Comparison: None Findings: No fractures or dislocations. No joint effusion. No significant arthritic change. No radiopaque foreign body. IMPRESSION: 1. Normal right forearm This document has been electronically signed by: Teddy John MD on 08/09/2024 09:48:48
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
[2024-08-09 08:43] VITALS: BP 136/87; PULSE 117; RESP 20; TEMP 36.1; O2SAT 96; BMI 27.7
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
--- OUTSIDE RECORDS SUMMARY | 2024-08-09 09:18 | XMS_ITS | Clinical Summary ---
Author Organization [facility] Address [address] [place] [address] Care Team Providers Care Graduate School Dean Name Role Phone Unavailable Primary Care Provider [...]
--- OUTSIDE RECORDS SUMMARY | 2024-08-09 09:18 | XMS_ITS | Clinical Summary ---
Author Organization [employer] [facility] ity Address [address] [place] [address] Care Team Providers Care Electrotype Servicer Name Role Phone Asiya King MD Primary Care Provider Allergies Active Allergy Reactions Criticality Noted Date [...] Vaccine (1 - 2023-2 5 season) 2023 Cholesterol Screening (Lipid Panel) 04/20/2024 06/04/2013 Depression Screening 04/20/2024 Social Influencers of Health Screening 04/20/2024 Influenza Vaccine (Season Ended) 2024 04/07/2011, 05/05/2009 Hepatitis A Vaccines Aged Out 08/12/2009, 12/10/2008, [...] age to complete this topic Meningococcal B Vaccine Aged Out No l onger eligible based on patient's age to complete [...] Chanda l Result * HIV Screening (05/29/2013) [facility] HIV Screening ABSTRACTED Historical Provider HEALTH MAINTENANCE Final Result from Last 3 Months or Most Recently Relevant to Health Maintenance Care Teams Electrotype Servicer Relationship Specialty Start Date End Date Asiya King MD PCP - General 10/12/22
--- OUTSIDE RECORDS SUMMARY | 2024-08-09 09:18 | XMS_ITS | Clinical Summary ---
Author Organization [employer] Address [address] [facility] [address] [place] [address] Care Team Providers Care Choir Leader Name Role Phone Yamilex Thomas YEISON Primary Care Provider [phone] Allergies Active Allergy Reactions Criticality Noted Date [...] Encounters Date Type Department Care Team Description 07/28/2024 1:30 PM EDT Office Visit [facility] OPTOMETRY [address] [place] [address] Damon, Leslye, OD Regular astigmatism of both eyes (Primary Dx) 06/26/2024 2:00 PM EST Office Visit [facility] OPTOMETRY [address] [place] [address] Damon, Leslye, OD Regular astigmatism of both eyes (Primary Dx); Epiretinal membrane (ERM) of right eye 06/26/2024 Travel 05/18/2024 Orders Only [facility] External Provider, [facility] from Last 3 Months Immunizations Name Administration Dates Next Due Hep A / Hep B 08/12/2009,05/23/2007 Hep A, Adult 12/10/2008 Hep B, adult 07/04/2023 Influenza injectable quadriv alent IIV4 with preservative 05/31/2021 Influenza, IIV3, injectable 04/07/2011 Moderna Covid-19 Vaccine 12+ 04/07/2011 Novel [id number], preservative-free 05/05 Pfizer Covid-19 Vaccine 12+ 05/31/2021 [...] 24 SDOH Screening 07/03/2024 07/04/2023 Tobacco Screening 07/11/2025 07/11/2024 Lipid Panel 07/03/2028 07/04/2023 DTaP/Tdap/Td Vaccines (3 [...] EST Narrative 05/19/2024 9:46 AM EST ? [facility] ?[address] ?[place] [address] ? Magnetic Resonance Report ? Signed ? Patient: Jessica,Srikanth ?MR#: [id number] ?? 59 ? : 1985 ?Acct:[id number] ? Age/Sex: 38 / M ?ADM Date: 05/18/24 ? Loc: HO.MRI ? Attending Dr: Ronda Dennis PA-C ? Ordering Physician: Ronda Dennis PA-C ?? Date of Service: 05/18/24 ?? Procedure(s): MR knee RT wo con ?? Accession Number(s): [id number] ? cc: Rosalva Guthrie MD; Ronda Dennis [...] ??Adriano Valdez MD ??05/19/2024 09:43 AM EST ?? RP ? Dictated By: ?Adriano Valdez MD ? Signed By: ?<Electronically signed by Adriano Valdez MD in OV> ?05/19/24 0943 ? DD/ 1903 ? TD/TT: 05/18/241929 ? Motor Coach Tour Operator: ? Procedure Note [place], Image - 05/19/[address] [address] Magnetic Resonance Report Signed Patient: Doris Lopez#: [id number] 59 : 1985Acct:[id number] Age/Sex: 38 / MADM Date: 05/18/24 Loc: HO.MRI Attending Dr: Ronda Dennis PA-C Ordering Physician: Ronda Dennis PA-C Date of Service: 05/18/24 Procedure(s): MR knee RT wo con Accession Number(s): [id number] cc: Rosalva Guthrie MD; Ronda Dennis PA-C [...] by: Adriano Valdez MD 05/19/2024 09:43 AM [facility] Dictated By: Adriano Valdez MD Signed By: <Electronically signed by Adriano Valdez MD in OV> 05/19/24 0943 DD/ 04 TD/TT: 05/18/241929 Motor Coach Tour Operator: [facility] External Provider IMG MRI PROCEDURES Edited Result - Final * Hepatitis C Antibody with Reflex to HCV, RNA, Quantitative, Real-Time PCR (07/04/2023 3:42 PM EDT) Hepatitis C Antibody Nonreactive Nonreactive [facility] Comment:Antibodies to HCV no t detected; does not exclude early acuteHCV infection. Blood Venous blood specimen / Unknown 07/04/2023 3:42 PM EDT 07/04/2023 5:40 PM EDT Nikki Trace INTERNET SALES MANAGER LAB BLOOD ORDERABLES Final Resu lt [facility] [address] [place] [phone] * (ABNORMAL) Lipid Panel, Standard (07/04/2023 3:42 PM EDT) Triglycerides 66 <150 mg/dL [facility] Comment:Desirable Triglyceri de: less than 150 mg/dLBorderline High Triglyceride 150-199 mg/dLHigh Triglyceride: 200-499 mg/dLVery High Triglyceride: greater than or equal to 5OO mg/dL Cholesterol 185 <200 mg/dL [facility] Comment:Desirable Cholestero l: less than 200 mg/dLBorderline High Cholesterol: 200-239 mg/dLHigh Cholesterol: greater than 239 mg/dL LDL Cholesterol Calculated 114(H) <100 mg/dL [facility] Comment:Desirable LDL: less than 100 mg/dLNear Optimal/Above Optimal LDL: 110- 129 mg/dLBorderline High LDL: 130-159 mg/dLHigh LDL: 160-189 mg/dLVery High LDL: greater than or equal to 190 mg/dL HDL Cholesterol 58 >40 mg/dL [facility] Comment:Desirable HDL: great er than 40 mg/dL Note: This HDL assay may give artificially low results in patients with liver disease. Blood Venous blood specimen / Unknown 07/04/2023 3:42 PM EDT 07/04/2023 5:40 PM EDT Nikki Woodward INTERNET SALES MANAGER LAB BLOOD ORDERABLES Final Resu lt [facility] [address] [place] [phone] from Last 3 Months or Most Recently Relevant to Health Maintenance Insurance [facility] STANDARD [place]IC[place] [id number] Care Teams Choir Leader Relationship Specialty Start Date End Date Yamilex Thomas FNP [address] [place] [address] PCP - General Family Medicine 02/21/24
[2024-08-09] MEDS: Ibuprofen 800 MG TABLET PO (09:19)
[2024-08-09] MEDS: oxyCODONE HCl Immed Release 5 MG TABLET PO (10:44)
[2024-08-09 10:52] VITALS: BP 135/69; PULSE 96; RESP 18; TEMP 36.4; O2SAT 98
== END 2024-08-09 10:53 | disposition home or self-care (01) ==
PROVIDERS: Emergency Provider Emergency Medicine
DX: S09.90XA Unspecified injury of head, initial encounter (principal); S62.336A Displaced fracture of neck of fifth metacarpal bone, right hand, initial encounter for closed fracture; Y04.2XXA Assault by strike against or bumped into by another person, initial encounter; Y93.9 Activity, unspecified; Y92.9 Unspecified place or not applicable; Y99.9 Unspecified external cause status; M79.641 Pain in right hand
CPT/HCPCS: 70450; 72125; 73090; 73130; 99283; 99284

== ENCOUNTER → 2024-08-09 09:10 | Outpatient (BNV) | payer MEDICARE, MEDICAID, SELFPAY | PROVIDERS: Emergency Provider Emergency Medicine; Visit Provider Specialist | DX: S62.306A Unspecified fracture of fifth metacarpal bone, right hand, initial encounter for closed fracture (principal); S19.9XXA Unspecified injury of neck, initial encounter; S09.90XA Unspecified injury of head, initial encounter; M79.631 Pain in right forearm | CPT/HCPCS: 70450; 72125; 73090; 73130 ==

== ENCOUNTER 2024-08-15 08:12 | Outpatient (REF) | payer MEDICARE, MEDICAID, SELFPAY ==
--- NOTE | ~2024-08-15 | XR_ITS ---
EXAMINATION: XR HAND, RIGHT CLINICAL INFORMATION: M79.641 - Pain in right hand COMPARISON: August 09, 2024. TECHNIQUE: PA, lateral, and oblique views of the right hand. FINDINGS: Comminuted dorsally displaced fracture distal fifth metacarpal. No callus formation. The first second third and fourth metacarpals are intact. The carpal bones are intact. Phalanges are intact. XR/XR hand RT min 3V IMPRESSION: No healing in the dorsally displaced fracture distal fifth metacarpal. Electronically signed by: Daryl Brown MD 08/18/2024 02:06 PM EDT
--- OUTSIDE RECORDS SUMMARY | 2024-08-15 08:17 | XMS_ITS | Clinical Summary ---
Author Organization [employer] Address [address] [facility] [address] [place] [address] Care Team Providers Care Coal Weigher Name Role Phone Yamilex Thomas YEISON Primary Care Provider [phone] Allergies Active Allergy Reactions Criticality Noted Date [...] Description 07/28/2024 1:30 PM EDT Office Visit [facility] OPTOMETRY [address] [place] [address] Damon, Leslye, OD Regular astigmatism of both eyes (Primary Dx) 06/26/2024 2:00 PM EST Office Visit [facility] OPTOMETRY [address] [place] [address] Damon, Leslye, OD Regular astigmatism of both eyes (Primary Dx); Epiretinal membrane (ERM) of right eye 06/26/2024 Travel 05/18/2024 Orders Only [facility] External Provider, [facility] from Last 3 Months Immunizations Name Administration Dates Next Due Hep A / Hep B 08/12/2009,05/23/2007 Hep A, Adult 12/10/2008 Hep B, adult 07/04/2023 Influenza injectable quadriv alent IIV4 with preservative 05/31/2021 Influenza, IIV3, injectable 04/07/2011 Moderna Covid-19 Vaccine 12+ 04/07/2011 Novel [id number], preservative-free 05/05 Pfizer Covid-19 Vaccine 12+ 05/31/2021 [...] EST Narrative 05/19/2024 9:46 AM EST ? [facility] ?[address] ?[place] [address] ? Magnetic Resonance Report ? Signed ? Patient: Jessica,Srikanth ?MR#: [id number] ?? 59 ? : 1985 ?Acct:[id number] ? Age/Sex: 38 / M ?ADM Date: 05/18/24 ? Loc: HO.MRI ? Attending Dr: Ronda Dennis PA-C ? Ordering Physician: Ronda Dennis PA-C ?? Date of Service: 05/18/24 ?? Procedure(s): MR knee RT wo con ?? Accession Number(s): [id number] ? cc: Rosalva Guthrie MD; Ronda Dennis [...] ? DD/ 1903 ? TD/TT: 05/18/241929 ? Photogrammetric Technician: ? Procedure Note [place], Image - 05/19/[address] [address] Magnetic Resonance Report Signed Patient: Doris Lopez#: [id number] 59 : 1985Acct:[id number] Age/Sex: 38 / MADM Date: 05/18/24 Loc: HO.MRI Attending Dr: Ronda Dennis PA-C Ordering Physician: Ronda Dennis PA-C Date of Service: 05/18/24 Procedure(s): MR knee RT wo con Accession Number(s): [id number] cc: Rosalva Guthrie MD; Ronda Dennis PA-C [...] by: Adriano Valdez MD 05/19/2024 09:43 AM [facility] Dictated By: Adriano Valdez MD Signed By: <Electronically signed by Adriano Valdez MD in OV> 05/19/24 0943 DD/ 04 TD/TT: 05/18/241929 Photogrammetric Technician: [facility] External Provider IMG MRI PROCEDURES Edited Result - Final * Hepatitis C Antibody with Reflex to HCV, RNA, Quantitative, Real-Time PCR (07/04/2023 3:42 PM EDT) Hepatitis C Antibody Nonreactive Nonreactive [facility] Comment:Antibodies to HCV no t detected; does not exclude early acuteHCV infection. Blood Venous blood specimen / Unknown 07/04/2023 3:42 PM EDT 07/04/2023 5:40 PM EDT Nikki Trace ADJUNCT PHILOSOPHY FACULTY LAB BLOOD ORDERABLES Final Resu lt [facility] [address] [place] [phone] * (ABNORMAL) Lipid Panel, Standard (07/04/2023 3:42 PM EDT) Triglycerides 66 <150 mg/dL [facility] Comment:Desirable Triglyceri de: less than 150 mg/dLBorderline High Triglyceride 150-199 mg/dLHigh Triglyceride: 200-499 mg/dLVery High Triglyceride: greater than or equal to 5OO mg/dL Cholesterol 185 <200 mg/dL [facility] Comment:Desirable Cholestero l: less than 200 mg/dLBorderline High Cholesterol: 200-239 mg/dLHigh Cholesterol: greater than 239 mg/dL LDL Cholesterol Calculated 114(H) <100 mg/dL [facility] Comment:Desirable LDL: less than 100 mg/dLNear Optimal/Above Optimal LDL: 110- 129 mg/dLBorderline High LDL: 130-159 mg/dLHigh LDL: 160-189 mg/dLVery High LDL: greater than or equal to 190 mg/dL HDL Cholesterol 58 >40 mg/dL [facility] Comment:Desirable HDL: great er than 40 mg/dL Note: This HDL assay may give artificially low results in patients with liver disease. Blood Venous blood specimen / Unknown 07/04/2023 3:42 PM EDT 07/04/2023 5:40 PM EDT Nikki Woodward ADJUNCT PHILOSOPHY FACULTY LAB BLOOD ORDERABLES Final Resu lt [facility] [address] [place] [address] [phone] from Last 3 Months or Most Recently Relevant to Health Maintenance Insurance [facility] STANDARD [place] [phone] Care Teams Coal Weigher Relationship Specialty Start Date End Date Yamilex Thomas FNP [address] [place] [address] PCP - General Family Medicine 02/21/24
--- OUTSIDE RECORDS SUMMARY | 2024-08-15 08:17 | XMS_ITS | Clinical Summary ---
Author Organization [employer] [facility] ity Address [address] [place] [address] Care Team Providers Care Software Computer Specialist Name Role Phone Asiya King MD Primary Care Provider [phone] Allergies Active Allergy Reactions Criticality Noted Date [...] Chanda l Result * HIV Screening (05/29/2013) [facility] HIV Screening ABSTRACTED Historical Provider HEALTH MAINTENANCE Final Result from Last 3 Months or Most Recently Relevant to Health Maintenance Care Teams Software Computer Specialist Relationship Specialty Start Date End Date Asiya King MD PCP - General 10/12/22
--- OUTSIDE RECORDS SUMMARY | 2024-08-15 08:17 | XMS_ITS | Clinical Summary ---
Author Organization [facility] Address [address] [place] [address] Care Team Providers Care Obstetrics Specialist Name Role Phone Unavailable Primary Care Provider [...]
== END 2024-08-15 08:13 | disposition home or self-care (01) ==
LOC: HO.HOSX 08:12
DX: M79.641 Pain in right hand (principal); S62.306D Unspecified fracture of fifth metacarpal bone, right hand, subsequent encounter for fracture with routine healing
CPT/HCPCS: 73130; 99202

== ENCOUNTER 2024-08-15 08:43 | Outpatient (AMB) | payer MEDICARE, MEDICAID, SELFPAY ==
--- OUTSIDE RECORDS SUMMARY | 2024-08-15 08:50 | XMS_ITS | Clinical Summary ---
Author Organization [employer] [facility] ity Address [address] [place] [address] Care Team Providers Care Soaker Helper Name Role Phone Asiya King MD Primary Care Provider [phone] Allergies Active Allergy Reactions Criticality Noted Date [...] Chanda l Result * HIV Screening (05/29/2013) [facility] HIV Screening ABSTRACTED Historical Provider HEALTH MAINTENANCE Final Result from Last 3 Months or Most Recently Relevant to Health Maintenance Care Teams Soaker Helper Relationship Specialty Start Date End Date Asiya King MD PCP - General 10/12/22
--- OUTSIDE RECORDS SUMMARY | 2024-08-15 08:50 | XMS_ITS | Clinical Summary ---
Author Organization [facility] Address [address] [place] [address] Care Team Providers Care Production Wood Craftsman Name Role Phone Unavailable Primary Care Provider [...]
[2024-08-15 08:57] VITALS: BMI 27.7
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
== END 2024-08-15 10:00 | disposition home or self-care (01) ==
LOC: HO.HOS 08:44
DX: S62.306A Unspecified fracture of fifth metacarpal bone, right hand, initial encounter for closed fracture (principal)
CPT/HCPCS: 99204

== ENCOUNTER → 2024-08-15 08:45 | Outpatient (BNV) | payer MEDICARE, MEDICAID, SELFPAY | PROVIDERS: Visit Provider Radiology Diagnostic Radiology | DX: M79.641 Pain in right hand (principal) | CPT/HCPCS: 73130 ==

== ENCOUNTER 2024-08-18 12:38 | Day surgery (SDC) | payer MEDICARE, MEDICAID, SELFPAY ==
--- NOTE | ~2024-08-18 | FL_ITS ---
EXAMINATION: FL GUIDANCE ONLY HISTORY: right fifth metacarpal CRPP COMPARISON: Correlation is made to plain films of the right hand dated 08/15/2024. TECHNIQUE: Fluoroscopy time: 17.0 seconds. Cumulative Dose: 0.4759 mGy. DAP: 0.0288 mGym2 Images: 4. FINDINGS: Images demonstrate internal fixation of the previously noted comminuted fracture of the 5th metacarpal neck with a wire. FL/FL guidance in OR IMPRESSION: Fluoroscopy during procedure. Please see procedure report for additional information. Electronically signed by: Adriano Valdez MD 08/20/2024 01:32 PM EDT
--- OUTSIDE RECORDS SUMMARY | 2024-08-18 10:46 | XMS_ITS | Clinical Summary ---
Author Organization [facility] Address [address] [place] [address] Care Team Providers Care Net Programmer Analyst Name Role Phone Unavailable Primary Care Provider [...]
--- OUTSIDE RECORDS SUMMARY | 2024-08-18 10:46 | XMS_ITS | Clinical Summary ---
Author Organization [employer] Address [address] [facility] [address] [place] [address] Care Team Providers Care Slot Host Name Role Phone Yamilex Thomas YEISON Primary Care Provider [phone] Allergies Active Allergy Reactions Criticality Noted Date [...] Description 07/28/2024 1:30 PM EDT Office Visit [facility] OPTOMETRY [address] [place] [address] Damon, Leslye, OD Regular astigmatism of both eyes (Primary Dx) 06/26/2024 2:00 PM EST Office Visit [facility] OPTOM[facility] [address] [place] [address] Damon, Leslye, OD Regular astigmatism of both eyes (Primary Dx); Epiretinal membrane (ERM) of right eye 06/26/2024 Travel from Last 3 Months Immunizations Name Administration Dates Next Due Hep A / Hep B 08/12/2009,05/23/2007 Hep A, Adult 12/10/2008 Hep B, adult 07/04/2023 Influenza injectable quadriv alent IIV4 with preservative 05/31/2021 Influenza, IIV3, injectable 04/07/2011 Moderna Covid-19 Vaccine 12+ 04/07/2011 Novel [id number], preservative-free 05/05 Pfizer Covid-19 Vaccine 12+ 05/31/2021 [...] PM EDT) Hepatitis C Antibody Nonreactive Nonreactive [facility] Comment:Antibodies to HCV no t detected; does not exclude early acuteHCV infection. Blood Venous blood specimen / Unknown 07/04/2023 3:42 PM EDT 07/04/2023 5:40 PM EDT Nikki Woodward [facility] LAB BLOOD ORDERABLES Final Resu lt [facility] [address] [place] [phone] * (ABNORMAL) Lipid Panel, Standard (07/04/2023 3:42 PM EDT) Triglycerides 66 <150 mg/dL [facility] Comment:Desirable Triglyceri de: less than 150 mg/dLBorderline High Triglyceride 150-199 mg/dLHigh Triglyceride: 200-499 mg/dLVery High Triglyceride: greater than or equal to 5OO mg/dL Cholesterol 185 <200 mg/dL [facility] Comment:Desirable Cholestero l: less than 200 mg/dLBorderline High Cholesterol: 200-239 mg/dLHigh Cholesterol: greater than 239 mg/dL LDL Cholesterol Calculated 114(H) <100 mg/dL [facility] Comment:Desirable LDL: less than 100 mg/dLNear Optimal/Above Optimal LDL: 110- 129 mg/dLBorderline High LDL: 130-159 mg/dLHigh LDL: 160-189 mg/dLVery High LDL: greater than or equal to 190 mg/dL HDL Cholesterol 58 >40 mg/dL [facility] Comment:Desirable HDL: great er than 40 mg/dL Note: This HDL assay may give artificially low results in patients with liver disease. Blood Venous blood specimen / Unknown 07/04/2023 3:42 PM EDT 07/04/2023 5:40 PM EDT Nikki Woodward HOME THEATER SPECIALIST LAB BLOOD ORDERABLES Final Resu lt [facility] [address] [place] [address] [phone] from Last 3 Months or Most Recently Relevant to Health Maintenance Insurance [facility] STANDARD MEDICARE Care Teams Slot Host Relationship Specialty Start Date End Date Yamilex Thomas FNP [address] [place] [address] PCP - General Family Medicine 02/21/24
--- OUTSIDE RECORDS SUMMARY | 2024-08-18 10:46 | XMS_ITS | Clinical Summary ---
Author Organization [employer] [facility] ity Address [address] [place] [address] Care Team Providers Care Healthcare Marketer Name Role Phone Asiya King MD Primary [...] Chanda l Result * HIV Screening (05/29/2013) [facility] HIV Screening ABSTRACTED Historical Provider HEALTH MAINTENANCE Final Result from Last 3 Months or Most Recently Relevant to Health Maintenance Care Teams Healthcare Marketer Relationship Specialty Start Date End Date Asiya King MD PCP - General 10/12/22
[2024-08-18 13:36] VITALS: BP 119/74; PULSE 80; RESP 16; TEMP 37.1; O2SAT 98; BMI 28.1
[2024-08-18] MEDS: Lactated Ringers 1,000 ML 80 ML IVCONT (13:53)
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
--- NOTE | 2024-08-18 14:28 | MHC.SHP ---
Pre-Procedural Eval Section A - 24 Hr Update-Section A only Date of Service: 08/18/24 The patient is an INPATIENT: No Changes since office visit: No Cold of Flu in the past 2 weeks, No New Medical Problems, No Changes in Medication and No Patient answered all questions The patient has been examined within 24 hours of the surgical procedure. The History & Physical has been completed within 30 days and I have reviewed it.: Yes Section B - Complete if H&P > 30 days Chief Complaint: Unspecified fracture of fifth metacarpal bone, Allergies: Allergies Allergy/AdvReac Type Severity Reaction Status Date / Time Penicillins [PENICILLINS] Allergy Unknown SWELLING Verified 08/18/24 13:33 sulfamethoxazole Allergy Unknown ANGIO EDEMA Verified 08/18/24 13:33 [From BACTRIM] trimethoprim [From BACTRIM] Allergy Unknown ANGIO EDEMA Verified 08/18/24 13:33 acetaminophen [From Tylenol] Allergy Facial Verified 08/18/24 13:33 Swelling Plan I have reviewed the history and physical and performed a pertinent physical examination on my patient. No changes have occurred unless specified. Time Spent With Patient Time: Total time managing care of this patient today ____ minutes.
--- NOTE | 2024-08-18 15:17 | HO.ANESPROP2 ---
[facility] Active Problems Active Problems: All Active Problems Fracture of fifth metacarpal bone of right hand (Acute) Strain of right calf muscle (Acute) Patellofemoral arthritis of right knee (Acute) Internal derangement of right knee (Acute) Past Medical History Medical History (Updated 08/18/24 @ 13:33 by Odilia Wilder RN) Asthma Family History Family history of problems with anesthesia: No Surgical History Surgical History History of facial surgery S/P foot surgery, left History of Problems with Anesthesia: No Social History Social History (Updated 08/15/24 @ 09:03 by [facility] Are you a primary patient care technician instructor to a significant other at home: No Do you presently have visiting nurse or other home services: No Alcohol intake: never Patient Tobacco Use Status: Current everyday Tobacco user Cigarettes Per Day: 5 Patient Interested in Nicotine Replacement: No Use of substances other than those prescribed or required for medical reasons: No Substance Use Type: Marijuana Substance Use Frequency: Daily Have you been hit, kicked, punched, or otherwise hurt by someone within the past year? 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 Meds Allergies Allergy/AdvReac Type Severity Reaction Status Date / Time Penicillins [PENICILLINS] Allergy Unknown SWELLING Verified 08/18/24 13:33 sulfamethoxazole Allergy Unknown ANGIO EDEMA Verified 08/18/24 13:33 [From BACTRIM] trimethoprim [From BACTRIM] Allergy Unknown ANGIO EDEMA Verified 08/18/24 13:33 acetaminophen [From Tylenol] Allergy Facial Verified 08/18/24 13:33 Swelling Active Medications: Current Medications Lactated Ringer's (Lr) 1,000 mls @ 80 mls/hr IVCONT .[id number] SIVA Last Admin: 08/18/24 13:53 Dose: 80 mls/hr Home Medications ?Medication ?Instructions ?Recorded ?Confirmed ?Last Taken ?Type albuterol sulfate 90 mcg/actuation 2 puff inhalation Q4H PRN wheezing 06/30/24 08/18/24 Unknown History aerosol inhaler (Ventolin HFA) fluticasone propionate 50 1 spray intranasal QAM 06/30/24 08/18/24 Unknown History mcg/actuation nasal spray,suspension Exam Height,Weight and Vital Signs: Height 6 ft Weight 94 kg Last Vital Signs Temp 98.7 F 08/18/24 13:36 Pulse 80 08/18/24 13:36 Resp 16 08/18/24 13:36 BP 119/74 08/18/24 13:36 Pulse Ox 98 08/18/24 13:36 O2 Del Method Room Air 08/18/24 13:36 Airway Mallampati Class: II (cap top front) TM Dist: >3cm Neck ROM: Full Heart: rrr Lungs: cta Assessment and Plan Assessment Anesthesia Assessment: Anesthesia Plan Discussed and Chart Reviewed Final Anesthetic Review Family History of Problems with Anesthesia: No History of Problems with Anesthesia: No NPO: Yes ASA Class: II Final Preanesthetic Review: No Changes in Pt Med Stat, Meds/Allgs Chart Reviewed and Consent Obtained/Reviewed Patient Risk: Low Procedure Risk: Low Anesthetic Plan Anesthetic Plan: GA Disposition: Standard PACU
[2024-08-18] MEDS: ceFAZolin Sodium/Dextrose,Iso 2 GM/50 ML PIGGYBACK IV (16:10)
[2024-08-18 16:56] VITALS: BP 129/78; PULSE 92; RESP 16; TEMP 36.3; O2SAT 97
[2024-08-18 17:01] VITALS: BP 133/78; PULSE 81; RESP 16; O2SAT 97
[2024-08-18 17:06] VITALS: BP 120/74; PULSE 78; RESP 16; O2SAT 98
[2024-08-18 17:11] VITALS: BP 123/76; PULSE 76; RESP 16; O2SAT 98
== END 2024-08-18 18:08 | disposition home or self-care (01) ==
PROVIDERS: Visit Provider Orthopaedic Surgery
PROC: (CPT 26608; principal; 2024-08-18 15:20)
DX: S62.336A Displaced fracture of neck of fifth metacarpal bone, right hand, initial encounter for closed fracture (principal); R20.0 Anesthesia of skin; R20.2 Paresthesia of skin; Y04.0XXA Assault by unarmed brawl or fight, initial encounter; Y93.89 Activity, other specified; Y92.9 Unspecified place or not applicable; Y99.9 Unspecified external cause status; Z88.0 Allergy status to penicillin; Z88.2 Allergy status to sulfonamides; Z88.8 Allergy status to other drugs, medicaments and biological substances; Z98.890 Other specified postprocedural states; F17.210 Nicotine dependence, cigarettes, uncomplicated; Z56.0 Unemployment, unspecified
CPT/HCPCS: 26608; J0690; J1100; J2004; J2250; J2405; J2704; J3010

== ENCOUNTER → 2024-08-18 12:38 | Outpatient (BNV) | payer MEDICARE, MEDICAID, SELFPAY | PROVIDERS: Visit Provider Orthopaedic Surgery | DX: S62.336A Displaced fracture of neck of fifth metacarpal bone, right hand, initial encounter for closed fracture (principal) | CPT/HCPCS: 26608 ==

== ENCOUNTER 2024-09-02 10:08 | Outpatient (REF) | payer MEDICARE, MEDICAID, SELFPAY ==
--- NOTE | ~2024-09-02 | XR_ITS ---
CLINICAL HISTORY: M79.641 - Pain in right hand 3 view right hand Comparison: CR - XR HAND RT MIN 3V - 08/09/24 09:09 EDT Findings: Fixation pin traverses the 5th metacarpal. Distal 5th metacarpal fracture is present as before. No significant loss of joint space or osteophytes. No erosions. No radiopaque foreign body. IMPRESSION: 5th metacarpal fixation. This document has been electronically signed by: Lizbeth Yost MD on 09/02/2024 17:58:00
--- OUTSIDE RECORDS SUMMARY | 2024-09-03 11:06 | XMS_ITS | Clinical Summary ---
Author Organization [facility] Address [address] [place] [address] Care Team Providers Care Financial Planner Name Role Phone Asiya King MD Primary Care Provider [phone] Allergies Active Allergy Reactions Criticality Noted Date [...] Chanda l Result * HIV Screening (05/29/2013) [facility] HIV Screening ABSTRACTED Historical Provider HEALTH MAINTENANCE Final Result from Last 3 Months or Most Recently Relevant to Health Maintenance Care Teams Financial Planner Relationship Specialty Start Date End Date Asiya King MD PCP - General 10/12/22
--- OUTSIDE RECORDS SUMMARY | 2024-09-03 11:06 | XMS_ITS | Clinical Summary ---
Author Organization [facility] Address [address] [place] [address] Care Team Providers Care Technical Instructor Name Role Phone Unavailable Primary Care Provider [...]
== END 2024-09-02 10:09 | disposition home or self-care (01) ==
LOC: HO.HOSX 10:08
PROVIDERS: Visit Provider Orthopaedic Surgery
DX: M79.641 Pain in right hand (principal); S62.306A Unspecified fracture of fifth metacarpal bone, right hand, initial encounter for closed fracture
CPT/HCPCS: 73130; 99212

== ENCOUNTER 2024-09-02 12:31 | Outpatient (AMB) | payer MEDICARE, MEDICAID, SELFPAY ==
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
[2024-09-02 13:03] VITALS: BMI 29.2
--- OUTSIDE RECORDS SUMMARY | 2024-09-02 13:38 | XMS_ITS | Clinical Summary ---
Author Organization [employer] Address [address] [place] [address] Care Team Providers Care Sweet Dough Mixer Name Role Phone Yamilex Thomas [facility] Primary Care Provider [phone] Allergies Active Allergy Reactions Criticality Noted Date [...] Encounters Date Type Department Care Team Description 08/22/2024 11:00 AM EDT Office Visit [facility] [address] [place] [address] Damon, Leslye, OD Regular astigmatism of both eyes (Primary Dx) 07/28/2024 1:30 PM EDT Office Visit [facility] [address] [place] [address] Damon, Leslye, OD Regular astigmatism of both eyes (Primary Dx) 06/26/2024 2:00 PM EST Office Visit [facility] [address] [place] [address] Damon, Leslye, OD Regular astigmatism of both eyes (Primary Dx); Epiretinal membrane (ERM) of right eye 06/26/2024 Travel from Last 3 Months Immunizations Name Administration Dates Next Due Hep A / Hep B 08/12/2009,05/23/2007 Hep A, Adult 12/10/2008 Hep B, adult 07/04/2023 Influenza injectable quadriv alent IIV4 with preservative 05/31/2021 Influenza, IIV3, injectable 04/07/2011 Moderna Covid-19 Vaccine 12+ 04/07/2011 Novel [id number], preservative-free 05/05 Pfizer Covid-19 Vaccine 12+ 05/31/2021 [...] 04/07/2011, 05/05/2009 Depression Screening 07/03/2024 07/04/2023, 07/04/19 SDOH Screening 07/03/2024 07/04/2023 Tobacco Screening 07/11/2025 [...] PM EDT) Hepatitis C Antibody Nonreactive Nonreactive [facility] Comment:Antibodies to HCV no t detected; does not exclude early acuteHCV infection. Blood Venous blood specimen / Unknown 07/04/2023 3:42 PM EDT 07/04/2023 5:40 PM EDT Nikki Woodward MACHINIST HELPER LAB BLOOD ORDERABLES Final Resu lt [facility] [address] [place] [address] [phone] * (ABNORMAL) Lipid Panel, Standard (07/04/2023 3:42 PM EDT) Triglycerides 66 <150 mg/dL [facility] Comment:Desirable Triglyceri de: less than 150 mg/dLBorderline High Triglyceride 150-199 mg/dLHigh Triglyceride: 200-499 mg/dLVery High Triglyceride: greater than or equal to 5OO mg/dL Cholesterol 185 <200 mg/dL [facility] Comment:Desirable Cholestero l: less than 200 mg/dLBorderline High Cholesterol: 200-239 mg/dLHigh Cholesterol: greater than 239 mg/dL LDL Cholesterol Calculated 114(H) <100 mg/dL [facility] Comment:Desirable LDL: less than 100 mg/dLNear Optimal/Above Optimal LDL: 110- 129 mg/dLBorderline High LDL: 130-159 mg/dLHigh LDL: 160-189 mg/dLVery High LDL: greater than or equal to 190 mg/dL HDL Cholesterol 58 >40 mg/dL [facility] Comment:Desirable HDL: great er than 40 mg/dL Note: This HDL assay may give artificially low results in patients with liver disease. Blood Venous blood specimen / Unknown 07/04/2023 3:42 PM EDT 07/04/2023 5:40 PM EDT Nikki Trace MACHINIST HELPER LAB BLOOD ORDERABLES Final Resu lt [facility] [address] [place] [address] [phone] from Last 3 Months or Most Recently Relevant to Health Maintenance Insurance [facility] STANDARD MEDIC[place] [address] [place] [id number] Care Teams Sweet Dough Mixer Relationship Specialty Start Date End Date Yamilex Thomas FNP [address] [place] [id number] PCP - General Family Medicine 02/21/24
--- OUTSIDE RECORDS SUMMARY | 2024-09-02 13:38 | XMS_ITS | Clinical Summary ---
Author Organization [facility] Address [address] [place] [address] Care Team Providers Care Gas Regulator Repairer Helper Name Role Phone Unavailable Primary Care Provider [...]
== END 2024-09-02 13:49 | disposition home or self-care (01) ==
LOC: HO.HOS 12:32
PROVIDERS: Visit Provider Orthopaedic Surgery
DX: S62.306A Unspecified fracture of fifth metacarpal bone, right hand, initial encounter for closed fracture (principal)
CPT/HCPCS: 99024

== ENCOUNTER → 2024-09-02 12:34 | Outpatient (BNV) | payer MEDICARE, MEDICAID, SELFPAY | PROVIDERS: Visit Provider Radiology Diagnostic Radiology | DX: S62.306A Unspecified fracture of fifth metacarpal bone, right hand, initial encounter for closed fracture (principal) | CPT/HCPCS: 73130 ==

== ENCOUNTER 2024-09-16 08:38 | Outpatient (REF) | payer MEDICARE, MEDICAID, SELFPAY ==
--- NOTE | ~2024-09-16 | XR_ITS ---
EXAMINATION: XR HAND 3 OR MORE VIEWS RIGHT HISTORY: M79.641 - Pain in right hand COMPARISON: Comparison is made with the prior examination dated 09/02/2024. FINDINGS: Three views of the right hand are submitted. Osseous mineralization is normal. The patient is again noted to be status post internal fixation of a fracture of the 5th metacarpal neck with a K wire. The fracture line remains visible. The joint spaces are preserved. A linear metallic density is seen along the hypothenar eminence which is external to the patient. XR/XR hand RT min 3V IMPRESSION: Internal fixation of a fracture of the 5th metacarpal neck without change. Electronically signed by: Adriano Valdez MD 09/17/2024 09:30 AM EDT
--- OUTSIDE RECORDS SUMMARY | 2024-09-16 08:57 | XMS_ITS | Clinical Summary ---
Author Organization [facility] Address [address] [place] [address] Care Team Providers Care Sports Team Marketing Intern Name Role Phone Unavailable Primary Care [...]
== END 2024-09-16 08:39 | disposition home or self-care (01) ==
LOC: HO.HOSX 08:38
PROVIDERS: Visit Provider Orthopaedic Surgery
DX: M79.641 Pain in right hand (principal); S62.306A Unspecified fracture of fifth metacarpal bone, right hand, initial encounter for closed fracture
CPT/HCPCS: 73130; 99212

== ENCOUNTER 2024-09-16 15:22 | Outpatient (AMB) | payer MEDICARE, MEDICAID, SELFPAY ==
[2024-09-16 16:28] VITALS: BMI 29.2
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
== END 2024-09-16 16:45 | disposition home or self-care (01) ==
LOC: HO.HOS 15:23
PROVIDERS: Visit Provider Orthopaedic Surgery
DX: S62.306A Unspecified fracture of fifth metacarpal bone, right hand, initial encounter for closed fracture (principal)
CPT/HCPCS: 99024

== ENCOUNTER → 2024-09-16 15:25 | Outpatient (BNV) | payer MEDICARE, MEDICAID, SELFPAY | PROVIDERS: Visit Provider Radiology Diagnostic Radiology | DX: M79.641 Pain in right hand (principal); S62.336D Displaced fracture of neck of fifth metacarpal bone, right hand, subsequent encounter for fracture with routine healing | CPT/HCPCS: 73130 ==

== ENCOUNTER 2024-10-26 10:53 | Emergency (ER) | payer MEDICARE, MEDICAID, SELFPAY ==
[2024-10-26 11:11] VITALS: BP 133/67; PULSE 96; RESP 16; TEMP 36.2; O2SAT 98; BMI 30.5
--- NOTE | 2024-10-26 11:13 | ED_ITS ---
HPI - General Adult General Chief complaint: General Medical Stated complaint: testicle swelling and facial swelling Time Seen by Provider: 10/26/24 12:02 Source: patient Limitations: no limitations History of Present Illness HPI narrative: 38-year-old male presents for evaluation of pain to the left side of his face. Patient states he awoke today, and noted to have may sore, slightly red and irritated area to the left side of his face. Also reports that some of the hair in his [place] is missing. He denies any history of similar symptoms. No fevers chills nausea or vomiting. He denies any dental pain. Patient also reports yellowish crusting and discharge noted to this area. No history of similar. In addition, the patient is complaining of right testicular pain. Patient states this has been going on since yesterday, October 25. Patient states that he is sexually active with 1 female partner with his last time yesterday. Patient states that he also reports having an erection for longer than normal which ultimately resolved on its own. He denies any dysuria or hematuria. Denies any trauma. Patient does report that after intercourse he did have pain to the right testicle. He is otherwise feeling well. Related Data Home Medications ?Medication ?Instructions ?Recorded ?Confirmed albuterol sulfate 90 mcg/actuation 2 puff inhalation Q 4H PRN wheezing 06/30/24 08/18/24 aerosol inhaler (Ventolin HFA) fluticasone propionate 50 1 spray intranasal QAM 06/3008/18/24 mcg/actuation nasal spray,suspension Allergies Allergy/AdvReac Type Severity Reaction Status Date / Time Penicillins (PENICILLINS) Allergy Unknown SWELLING Verified 10/26/24 11:16 sulfamethoxazole (From Allergy Unknown ANGIO EDEMA Verified 10/26/24 11:16 BACTRIM) trimethoprim (From BACTRIM) Allergy Unknown ANGIO EDEMA Verified 10/26/24 11:16 acetaminophen (From Tylenol) Allergy Facial Verified 10/26/24 11:16 Swelling Review of Systems Constitutional: Constitutional: Denies body ache(s) and Denies chills Cardiovascular: Cardiovascular: Denies chest pain Respiratory: Respiratory: Denies cough Gastrointestinal: Gastrointestinal: Denies abdominal pain and Denies constipation Genitourinary: Genitourinary: Reports genital pain, Denies dysuria, Denies flank pain, Denies penile discharge, Reports scrotal swelling, Reports testicular pain, Denies urinary hesitancy, Denies urinary incontinence and Denies urinary urgency COUNT INCLUDES THE [facility] Past Medical History Medical History Asthma Surgical History History of facial surgery S/P foot surgery, left Social History Social History Are you a primary account executive healthcare to a significant other at home: No Do you presently have visiting nurse or other home services: No Unable to assess alcohol history related to: Unknown Alcohol intake: never Patient Tobacco Use Status: Current everyday Tobacco user Cigarettes Per Day: 5 Smoked in Last 30 Days: No Use of substances other than those prescribed or required for medical reasons: Yes Substance Use Type: Marijuana Substance Use Frequency: Daily Advance Directives: No Advance Directives Information Provided: No Do you have a plan to hurt others: No Plan Current occupational status: unemployed Current occupation: right hand Physical Exam ED Vital Signs: Vital Signs - 24 hr 10/26/24 11:11 Temperature 97.2 F Pulse Rate 96 Respiratory Rate 16 Blood Pressure 133/67 Pulse Oximetry 98 Oxygen Delivery Method Room Air BMI result Body Mass Index 30.5 Const General: cooperative HENMT Other: Oropharynx is moist. There is no tongue elevation or edema. Teeth are in good repair. There is no tenderness to tapping. There was no gingival swelling. Speaks full clear sentences. GI Other: Abdomen is soft and nontender throughout. Other: Uncircumcised male anatomy without any lesions or rashes. There is no penile discharge. No left testicular tenderness. There does appear to be fullness to the right testicle and proximal scrotum. Diffuse tenderness in this region. There was no erythema of the scrotum. No induration to the perineum. No right or left inguinal lymphadenopathy. Skin Other: Slight erythema to the left cheek, mandible region. There is some loss of hair. There is slight yellowish crusting. There is slight soft tissue swelling but no areas of fluctuance or induration. Course Course Course Narrative: This is a rapid medical exam performed by Danni Sethi NP: Additional HPI, ROS, PE not included below will be deferred to primary provider. Patient is a 38-year-old male presenting to the ED with two complaints. First is left sided facial redness, hair loss which patient noted this morning. Second is right testicular pain and swelling, pt reports hx of same in the past, has had inguinal hernia. Sxs began after he slipped and caught himself in the shower. Plan: UA, CT NG Reevaluation(s) Reevaluation #1: 12:30 PM Shortly after evaluating the patient, nursing attempted to administer antibiotics and bring him to ultrasound however the patient was not in the room. Department had been searched repeatedly and the patient was not located and therefore eloped. Medications Administered Discontinued Medications Generic Name Dose Route Start Last Admin Trade Name Freq PRN Reason Stop Dose Admin Doxycycline Monohydrate 100 mg 10/26/24 12:14 10/26/24 13:16 Doxycycline Monohydrate 100 Mg Capsule PO 10/26/24 12:15 Not Given ONCE ONE Medical Decision Making Medical Decision Making MDM Narrative: 38-year-old male presents with 2 complaints. 24 hour history of irritation and discharge to the left side of his face. Concern for folliculitis, appetite and you but no evidence of abscess or overt cellulitis at this time. We will provide Bactroban ointment and doxycycline, 1st dose to be given now. Patient advised that there is a potential for symptoms to worsen as well as development of abscess which may need an I and D at a later time. Approximately 24 hours of right testicular pain. Check ultrasound, UA. Differential Diagnosis Differential Diagnoses: The differential diagnosis associated with the presentation includes Cellulitis Impetigo Folliculitis Abscess, no evidence of Testicular torsion Epididymitis Orchitis STI Lab Data Labs: Lab Results 10/26/24 Range/Units 11:38 Ur N gonorrhoeae DNA (PCR) NOT DETECTED (Not Detect.) Ur Chlamydia DNA (PCR) NOT DETECTED (Not Detect.) Discharge Plan Discharge Clinical Impression: Impetigo any site Patient Disposition: Left W/O Completing Treatment Additional Instructions: Bactroban ointment to the affected area on your face. Doxycycline as directed. Finish all antibiotics. Prescriptions: No Action fluticasone propionate 50 mcg/actuation spray,suspension 1 spray intranasal QAM albuterol sulfate [Ventolin HFA] 90 mcg/actuation HFA aerosol inhaler 2 puff inhalation Q4H PRN (Reason: wheezing) Discharge Date/Time: 10/26/24 12:30
--- OUTSIDE RECORDS SUMMARY | 2024-10-26 12:03 | XMS_ITS | Clinical Summary ---
Author Organization [employer] Address [address] [place] [address] Care Team Providers Care Property Officer Name Role Phone Yamilex Thomas [facility] Primary Care Provider [phone] Allergies Active Allergy Reactions Criticality Noted Date [...] Description 08/22/2024 11:00 AM EDT Office Visit [facility] [address] [place] [address] Damon, Leslye, OD Regular astigmatism of both eyes (Primary Dx) 07/28/2024 1:30 PM EDT Office Visit [facility] [address] [place] [address] Damon, Leslye, OD Regular astigmatism of both eyes (Primary Dx) from Last 3 Months Immunizations Immunization Administration Dates Next Due Hep A / Hep B 08/12/2009,05/23/2007 Hep A, Adult 12/10/2008 Hep B, adult 07/04/2023 Influenza injectable quadriv alent IIV4 with preservative 05/31/2021 Influenza, IIV3, injectable 04/07/2011 Moderna Covid-19 Vaccine 12+ 04/07/2011 Novel [id number], preservative-free 05/05 Pfizer Covid-19 Vaccine 12+ 05/31/2021 [...] 72 07/04/2023 2:10 PM EDT Temperature 36.6 C (97.8 F) 07/04/2023 2:10 PM EDT Respiratory Rate 18 07/04/2023 2:10 PM EDT Oxygen Saturation 97% 07/04/2023 2:10 PM EDT Inhaled Oxygen Concentration - - Weight 108 kg (239 lb) 07/04/2023 2:10 PM EDT Height 182.9 cm (6') 07/04/2023 2:10 PM EDT Body Mass Index 32.41 07/04/2023 2:10 PM EDT Plan of Treatment Health Maintenance Due Date Last Done Comments HIV Screening 1987 Disability Screening 1987 Alcohol/Substance Use Screening 1999 Family Planning (PISQ) 11/24/2002 COVID-19 Vaccine ( season) 2023 05/31/2021, 04/27/2021, 07/21/2020, Additional history exists Depression Screening 07/03/2024 07/04/2023, 07/04/19 24 SDOH Screening 07/03/2024 07/04/2023 Influenza Vaccine (#1) 2024 2, 04/07/2011, 05/05/2009 Tobacco Screening 07/11/2025 07/11/2024 Lipid Panel 07/03/2028 [...] Years) and At-Risk Patients (6 to 49) Years Completed 07/04/2023 HIB Vaccines Aged Out No [...] PM EDT) Hepatitis C Antibody Nonreactive Nonreactive [facility] Comment:Antibodies to HCV no t detected; does not exclude early acuteHCV infection. Blood Venous blood specimen / Unknown 07/04/2023 3:42 PM EDT 07/04/2023 5:40 PM EDT Nikki Woodward [facility] LAB BLOOD ORDERABLES Final Resu lt [facility] [address] [place] [phone] * (ABNORMAL) Lipid Panel, Standard (07/04/2023 3:42 PM EDT) Triglycerides 66 <150 mg/dL [facility] Comment:Desirable Triglyceri de: less than 150 mg/dLBorderline High Triglyceride 150-199 mg/dLHigh Triglyceride: 200-499 mg/dLVery High Triglyceride: greater than or equal to 5OO mg/dL Cholesterol 185 <200 mg/dL [facility] Comment:Desirable Cholestero l: less than 200 mg/dLBorderline High Cholesterol: 200-239 mg/dLHigh Cholesterol: greater than 239 mg/dL LDL Cholesterol Calculated 114(H) <100 mg/dL [facility] Comment:Desirable LDL: less than 100 mg/dLNear Optimal/Above Optimal LDL: 110- 129 mg/dLBorderline High LDL: 130-159 mg/dLHigh LDL: 160-189 mg/dLVery High LDL: greater than or equal to 190 mg/dL HDL Cholesterol 58 >40 mg/dL [facility] Comment:Desirable HDL: great er than 40 mg/dL Note: This HDL assay may give artificially low results in patients with liver disease. Blood Venous blood specimen / Unknown 07/04/2023 3:42 PM EDT 07/04/2023 5:40 PM EDT Nikki Woodward [employer] LAB BLOOD ORDERABLES Final Resu lt [facility] [address] [place] [phone] from Last 3 Months or Most Recently Relevant to Health Maintenance Insurance [facility] STANDARD MEDICARE Care Teams Property Officer Relationship Specialty Start Date End Date Yamilex Thomas FNP [address] [place] [address] PCP - General Family Medicine 02/21/24
--- OUTSIDE RECORDS SUMMARY | 2024-10-26 12:03 | XMS_ITS | Clinical Summary ---
Author Organization [employer] [facility] ity Address [address] [place] [address] Care Team Providers Care Rn Document Improvement Specialist Name Role Phone Asiya King MD [...] Chanda l Result * HIV Screening (05/29/2013) [facility] HIV Screening ABSTRACTED Historical Provider HEALTH MAINTENANCE Final Result from Last 3 Months or Most Recently Relevant to Health Maintenance Care Teams Rn Document Improvement Specialist Relationship Specialty Start Date End Date Asiya King MD PCP - General 10/12/22
[2024-10-26 13:17] LABS: CT PCR Urine NOT DETECTED (Not Detect.); NG PCR Urine NOT DETECTED (Not Detect.)
== END 2024-10-26 12:30 | disposition left against medical advice (07) ==
PROVIDERS: Registered Nurse Emergency; Emergency Provider Emergency Medicine
DX: L01.00 Impetigo, unspecified (principal); N50.89 Other specified disorders of the male genital organs; N50.811 Right testicular pain; F17.210 Nicotine dependence, cigarettes, uncomplicated; Z79.899 Other long term (current) drug therapy
CPT/HCPCS: 36415; 87491; 87591; 99283; 99284